=== PATIENT | female | born 1965 | race Caucasian/White ===

== ENCOUNTER → 2018-01-08 10:57 | Outpatient (CLI) | payer MEDICAID, SELFPAY ==
--- NOTE | 2018-01-08 11:01 | XR_ITS ---
EXAM: XR lumbar spine 2-3V HISTORY: ITS.REASON: LOW BACK PAIN ORDERING PHYSICIAN: Mell Arndt PATIENT AGE: 52 years COMPARISON: None FINDINGS: No fracture or dislocation. No lytic or blastic change. There is 7 mm anterolisthesis of L4 on L5 with degenerative disc disease at that level.. Mild facet sclerotic changes are present at L5-S1. There is minimal endplate osteophyte formation superiorly at L1. IMPRESSION: 1. No acute finding. 2. Degenerative disc disease with anterolisthesis of L4 on L5 with mild facet arthritic changes at L5-S1
== END ==
PROVIDERS: PCP Nurse Practitioner Family; Visit Provider Nurse Practitioner Family
DX: M54.5 Low back pain (principal)
CPT/HCPCS: 72100

== ENCOUNTER → 2019-05-15 09:51 | Outpatient (CLI) | payer MEDICAID, SELFPAY ==
--- NOTE | 2019-05-15 09:59 | XR_ITS ---
PROCEDURE: XR LUMBAR SPINE 2-3V CLINICAL INDICATION: LOW BACK PAIN COMPARISON: SPLUMBLM XR lumbar spine 2-3V from 01/08/2018 FINDINGS: There is normal curvature. Again noted is the anterolisthesis of L4 on L5. No definite pars defect is seen although I do not have oblique films available. There are hypertrophic facet changes at L4-5 and L5-S1. All lumbar vertebrae appear intact. There is minor disc space narrowing at L3-4 and L4-5 levels. The SI joints are normal. There are some calcifications left-sided pelvis which could be within uterine fibroids or could be due to phleboliths. IMPRESSION: Stable mild anterolisthesis of L4 on L5 probably secondary to hypertrophic facet changes at this level without a definite pars defect identified along with minor degenerate disc disease L3-4 and L4-5 Dictated by: Dr. Pawan Newsome MD 05/15/2019 10:[address] Pawan Newsome MD in [place] 05/15/2019 10:18
--- NOTE | 2019-05-15 10:00 | MM_ITS ---
PROCEDURE: MM DIG SCREENING MAMM BI W/CAD CLINICAL INDICATION: SCREENING No personal or family history of breast cancer. COMPARISON: The patient had previous mammograms more than 12 years ago and they are not available for review TECHNIQUE: Standard CC and MLO images were obtained. R2 CAD reviewed. FINDINGS: Mild to moderate fibroglandular densities are seen in the subareolar regions of both breasts. There are 2 small benign-appearing nodular densities near the axillary tail of the right breast probably low-lying or intramammary nodes. There is no suspicious lesion in either breast and no suspicious microcalcifications. There may be mild ductal hyperplasia in the subareolar regions bilaterally. There is no suspicious lesion and no suspicious microcalcifications. IMPRESSION: Mild to moderate breast density with no suspicious lesions seen BI-RAD Category: 2 Benign Finding(s) FOLLOW-UP: 1YR 1 Year Follow-up (A letter has been sent to the patient regarding results of the study.) Dictated by: Dr. Pawan Newsome MD 05/17/2019 09:[address] Pawan Newsome MD in [place] 05/17/2019 09:57
== END ==
PROVIDERS: PCP Nurse Practitioner; Visit Provider Nurse Practitioner
DX: Z12.31 Encounter for screening mammogram for malignant neoplasm of breast (principal); M54.5 Low back pain
CPT/HCPCS: 72100; 77067

== ENCOUNTER → 2019-08-14 09:04 | Outpatient (CLI) | payer OTHER, SELFPAY ==
--- NOTE | 2019-08-14 09:21 | MR_ITS ---
PROCEDURE: MR LUMBAR SPINE WO/W CON CLINICAL INDICATION: LOW BACK PAIN Low back pain with right leg pain worse when walking COMPARISON: XR LUMBAR SPINE 2-3V from 05/15/2019 TECHNIQUE: Routine multiplanar multi echo sequences are performed without and with gadolinium enhancement. 3-D MIP and myelographic images are also rendered and reviewed FINDINGS: Spinal cord ends at the T12-L1 level. T11-T12, T12-L1, L1-L2 and L2-L3 have an unremarkable appearance. L3-L4: Minimal bulging disc with mild facet ligamentum hypertrophy with mild bilateral lateral recess and foraminal narrowing. L4-5: 5 mm anterolisthesis of L4 with bulging disc along with facet ligamentum hypertrophy with resultant severe canal stenosis and severe bilateral lateral recess and foraminal narrowing. Canal measures approximately 7 mm. L5-S1: Facet ligamentum hypertrophy left greater than right with moderate to severe left-sided foraminal narrowing and mild right foraminal narrowing. No extruded herniated disc is evident. There are degenerative changes at the SI joints. IMPRESSION: 1. L3-L4: Minimal bulging disc with mild facet ligamentum hypertrophy with mild bilateral lateral recess and foraminal narrowing. 2. L4-5: 5 mm anterolisthesis of L4 with bulging disc along with facet ligamentum hypertrophy with resultant severe canal stenosis and severe bilateral lateral recess and foraminal narrowing. Canal measures approximately 7 mm. 3. The L5-S1: Facet ligamentum hypertrophy left greater than right with moderate to severe left-sided foraminal narrowing and mild right foraminal narrowing. 4. No extruded herniated disc evident Dictated by: Michele Dunne MD 08/14/2019 14:35 Electronically signed by Michele Dunne MD in [place] 08/14/2019 14:35
[2019-08-14 09:35] LABS: Chloride 102 mmol/L (98-107); Potassium 4.5 mmoL/L (3.5-5.1); Sodium 139 mmol/L (136-145)
[2019-08-14 09:38] LABS: Alanine Aminotransferase 13 U/L (12-78); Albumin Level 4.7 g/dl (3.5-5.0); Albumin/Globulin Ratio 1.5 (1.1-1.8); Alkaline Phosphatase 63 U/L (38-126); Anion Gap 13.5 mEq/L (5-15); Aspartate Amino Transferase 24 U/L (14-36); Bilirubin,Total 0.3 mg/dl (0.2-1.3); Blood Urea Nitrogen 12 mg/dl (7-17); Calcium 9.8 mg/dl (8.4-10.2); Carbon Dioxide 28 mmol/L (22.0-30.0); Estimated Glomerular Filt Rate 87 ml/min (>60); GFR (African American) 105 ML/MIN (>60); Globulin 3.2 g/dL (1.3-3.2); Glucose 98 mg/dl (74-100); Total Protein,Serum 7.9 g/dl (6.3-8.2)
== END ==
PROVIDERS: Visit Provider Nurse Practitioner
DX: M54.5 Low back pain (principal); E11.65 Type 2 diabetes mellitus with hyperglycemia; Z79.84 Long term (current) use of oral hypoglycemic drugs
CPT/HCPCS: 36415; 72158; 76376; 80053; A9576

== ENCOUNTER 2019-08-24 14:37 | Outpatient (RCR) | payer OTHER, SELFPAY | END 2019-09-24 13:48 | disposition home or self-care (01) | LOC: PT.CARL 14:37 | PROVIDERS: Visit Provider Nurse Practitioner | DX: M54.5 Low back pain (principal) | CPT/HCPCS: 97163 ==

== ENCOUNTER 2022-06-18 08:50 | Emergency (ER) | payer OTHER, SELFPAY ==
--- NOTE | 2022-06-18 09:25 | EXP.UTC ---
Discharge Plan Disposition Patient Disposition: Home, Self-Care Condition: Good Prescriptions Prescriptions: New azithromycin [Zithromax] 250 mg tablet 250 mg PO UD DOSE PK Qty: 6 0RF Rx Instructions: Take two (2) tablets today, then one (1) tablet days #2 thru #5 benzonatate [benzonatate] 100 mg capsule 100 mg PO TIDP PRN (Reason: Cough) Qty: 30 0RF methylprednisolone 4 mg Tablets,Dose Pack 4 mg PO DIRECTED Qty: 21 0RF No Action metformin 500 MG tablet 500 mg PO BID carvedilol 25 MG tablet 25 mg PO BID paroxetine HCl 10 MG tablet 10 mg PO DAILY clonazepam 0.5 MG tablet 0.5 mg PO BID amlodipine [Norvasc] 10 MG tablet 10 mg PO DAILY lisinopril 10 MG tablet 10 mg PO DAILY Referrals Follow up/Referrals: Irasema Puga APRN [Primary Care Provider] - See instructions Activity Restrictions/Add. Instructions Additional Instructions/Restrictions: Drink plenty of fluids. Take tylenol or ibuprofen for pain or fever. Take the medications as directed. Follow up with your regular doctor. GO TO THE ER FOR ANY WORSENING SYMPTOMS Clinical Impressions Clinical Impression: Bronchitis, Acute viral syndrome Instructions Patient Instructions: DI for Acute Bronchitis, DI for Viral Syndrome Discharge ED Provider: Mendoza Abdi [facility] [place] HPI General Stated complaint: cough,flu exposure,fever Time Seen by Provider: 06/18/22 09:21 History of Present Illness Provider Complaint: She states that for the past 3 days she has had fever, chills, body aches, chest congestion, sinus congestion and a nonproductive cough. Related Data Home Medications Medication Instructions Recorded Confirmed amlodipine 10 mg tablet (Norvasc) 10 mg PO DAILY HTN 11/18/17 11/18/17 carvedilol 25 mg tablet 25 mg PO BID HTN 11/18/17 11/18/17 clonazepam 0.5 mg tablet 0.5 mg PO BID Anxiety 11/18/17 11/18/17 lisinopril 10 mg tablet 10 mg PO DAILY KIDNEYS 11/18/17 11/18/17 metformin 500 mg tablet 500 mg PO BID Diabetes 11/18/17 11/18/17 paroxetine HCl 10 mg tablet 10 mg PO DAILY Depression 11/18/17 11/18/17 Previous Rx's Medication Instructions Recorded azithromycin 250 mg tablet 250 mg PO UD DOSE PK #6 tabs 06/18/22 (Zithromax) benzonatate 100 mg capsule 100 mg PO TIDP PRN Cough #30 caps 06/18/22 methylprednisolone 4 mg tablets in 4 mg PO DIRECTED #21 tabs 06/18/22 a dose pack Allergies Allergy/AdvReac Type Severity Reaction Status Date / Time Beta-Blockers Allergy Verified 06/18/22 09:53 (Beta-Adrenergic Bloc lisinopril Allergy Verified 06/18/22 09:53 [facility] Disclaimer: The information contained in this section may have been updated after the patient was seen, as this information can be updated by other users. Social History Smoking Status: Current every day smoker tobacco type: cigarettes alcohol intake: current current occupational status: employed Travel in the last 8 weeks: None ROS Obtained: Yes All systems reviewed & no additional complaints except as documented Constitutional Constitutional: Reports poor appetite Eyes Eyes: Reports system reviewed and no additional complaints, except as documented ENT Ears, Nose, Mouth, and Throat: Reports as per HPI Cardiovascular Cardiovascular: Reports system reviewed and no additional complaints, except as documented and Denies chest pain Respiratory Respiratory: Denies shortness of breath, Denies chest congestion, Reports cough, Denies stridor and Denies wheezing Gastrointestinal Gastrointestingal: Reports system reviewed and no additional complaints, except as documented; Denies abdominal pain, diarrhea or vomiting Musculoskeletal Musculoskeletal: Reports system reviewed and no additional complaints, except as documented and Denies arthralgias Integumentary/Breasts Skin/Breast: Reports system reviewed and no additional complaints, except as documented and Denies rash Neurologic
[2022-06-18 09:30] VITALS: BP 149/94; PULSE 97; RESP 19; TEMP 36.7; O2SAT 98; BMI 28.1
[2022-06-18 09:33] LABS: Adenovirus,PCR Not Detected (NotDetected); Bordetella Pertussis Not Detected (NotDetected); Chlamydophila Pneumoniae, PCR Not Detected (NotDetected); Coronavirus 19, PCR Not Detected (NotDetected); Coronavirus 229E Not Detected (NotDetected); Coronavirus NL63 Not Detected (NotDetected); Coronavirus OC43 Not Detected (NotDetected); Coronovirus HKU1,PCR Not Detected (NotDetected); Human Metapneumovirus Not Detected (NotDetected); Influenza A, PCR Not Detected (NotDetected); Influenza AH1, 2009 Not Detected (NotDetected); Influenza AH1, PCR Not Detected (NotDetected); Influenza AH3,PCR Not Detected (NotDetected); Influenza B, PCR Not Detected (NotDetected); Mycoplasma Pneumoniae, PCR Not Detected (NotDetected); Parainfluenza 1, PCR Not Detected (NotDetected); Parainfluenza 2, PCR Not Detected (NotDetected); Parainfluenza 3, PCR Not Detected (NotDetected); Parainfluenza 4, PCR Not Detected (NotDetected); Respiratory Syncytial Virus Not Detected (NotDetected); Rhinovirus/Enterovirus Not Detected (NotDetected)
[2022-06-18 09:40] LABS: UTC Influenza A Antigen Negative (Negative)
[2022-06-18 09:41] LABS: UTC Influenza B Antigen Negative (Negative)
[2022-06-18 10:32] VITALS: BP 149/94; PULSE 97; RESP 19; TEMP 36.7; O2SAT 98
== END 2022-06-18 10:32 | disposition home or self-care (01) ==
PROVIDERS: Emergency Provider Nurse Practitioner Family; PCP Nurse Practitioner
DX: J20.9 Acute bronchitis, unspecified (principal)
CPT/HCPCS: 87581; 87632; 87798; 87804; 99212; 99213; C9803; G0463; U0003; U0005

== ENCOUNTER 2023-09-29 08:54 | Observation (INO) | payer OTHER, SELFPAY ==
[2023-09-29] VITALS (13 sets, daily range): BP systolic 90–133; BP diastolic 59–93; PULSE 72–99; RESP 16–20; TEMP 36.4–36.9; O2SAT 88–96; BMI 25.0; BMI 26.3
--- NOTE | 2023-09-29 08:59 | ED_ITS ---
Discharge Plan Disposition Patient Disposition: Admitted Clinical Impressions Clinical Impression: GI bleed Discharge ED Provider: Italo Young General Adult HPI General Chief complaint: Abdominal Pain Stated complaint: abd pain and back pain Time Seen by Provider: 09/29/23 08:59 History of Present Illness HPI narrative: This patient presents for evaluation of epigastric abdominal pain, and reports black, tarry stools. Of note, upon reviewing patient's prescriptions at bedside, has been prescribed diclofenac and additionally has been taking ibuprofen, reports history of ulcers Onset: Gradual Location: Epigastrium Duration: Approximately 72 hours Characteristic: States pain is both sharp and dull Alleviating/Aggrivating Factors: None Radiation: To her back Timing: Constant Severity: Severe Patient reports history of hysterectomy. Was diagnosed with COVID on September 22. Denies nausea, vomiting, hematemesis, chest pain, urinary symptoms. Please note that above description of symptoms, in this electronic medical record under categorization of recalled from ER triage doctor by RN are reflective of an initial nursing assessment, however, is not reflective of my full history and physical exam that was personally taken and clarified. Consequentially, this preceding description of symptoms, which may include the patient's categorized chief complaint in the EMR, do not reflect my personal clinical impression, and the ultimate description of history of present illness and patient stated complaints should be deferred to this section of the note. Unless stated otherwise or congruent with this section of the note, additional signs, symptoms, or incongruence should be interpreted as inaccurate with my clinical impression. Related Data Home Medications Medication Instructions Recorded Confirmed carvedilol 25 mg tablet 25 mg PO BID 11/18/17 09/29/23 clonazepam 0.5 mg tablet 0.5 mg PO BID 11/18/17 09/29/23 amlodipine 5 mg tablet 5 mg PO DAILY 09/29/23 09/29/23 aspirin 81 mg tablet,delayed 81 mg PO DAILY 09/29/23 09/29/23 release atorvastatin 40 mg tablet 40 mg PO DAILY 09/29/23 09/29/23 diclofenac sodium 75 mg 75 mg PO BID 09/29/23 09/29/23 tablet,delayed release hydrochlorothiazide 12.5 mg tablet 12.5 mg PO DAILY 09/29/23 09/29/23 Allergies Allergy/AdvReac Type Severity Reaction Status Date / Time Beta-Blockers Allergy Verified 06/18/22 09:53 (Beta-Adrenergic Bloc lisinopril Allergy Verified 06/18/22 09:53 [facility] Disclaimer: The information contained in this section may have been updated after the patient was seen, as this information can be updated by other users. Social History (Updated 06/18/22 @ 20:24 by Mendoza Abdi APRN) Smoking Status: Current every day smoker tobacco type: cigarettes alcohol intake: current current occupational status: employed Travel in the last 8 weeks: None ROS Obtained: Yes other As per HPI Physical Exam General General appearance: alert and in no apparent distress Head Head exam: atraumatic and normocephalic Eye Eye exam: Present normal appearance Neck Neck exam: Present normal inspection Chest Chest inspection: Present normal inspection and symmetric chest wall rise Respiratory Respiratory exam: Present normal lung sounds bilaterally; Absent respiratory distress Cardiovascular Cardiovascular exam: Present regular rate and normal rhythm Abdominal Exam Abdominal exam: Present soft Abdominal tenderness: Present epigastrium and moderate Neurological Exam Neurological exam: Present alert and oriented X3 Psychiatric Psychiatric exam: Present normal affect and normal mood Skin Skin exam: Present warm and dry Medical Decision Making Medical Records Medical records reviewed: Yes I reviewed the patient's medical records. Marcus Inquiry Pt receiving controlled substance: No Vital Signs: 09/29/23 08:56 09/29/23 09:30 09/29/23 10:00 Temperature 98.1 F Temperature Source Oral Pulse Rate 93 H 86 Pulse Rate [Right] 99 H Respiratory Rate 20 Blood Pressure 121/90 111/84 Blood Pressure [Right Arm] 127/85 Blood Pressure Mean 99 89 Blood Pressure Mean [Right Arm] 99 02 Sat by Pulse Oximetry 93 L 91 L 90 L Oxygen Delivery Method Room Air Oxygen Flow Rate (LPM) 09/29/23 10:30 09/29/23 11:30 09/29/23 12:00 Temperature Temperature Source Pulse Rate 80 78 74 Pulse Rate [Right] Respiratory Rate 16 Blood Pressure 103/72 L 104/67 L 91/66 L Blood Pressure [Right Arm] Blood Pressure Mean 78 Blood Pressure Mean [Right Arm] 02 Sat by Pulse Oximetry 90 L 92 L 93 L Oxygen Delivery Method Room Air Room Air Oxygen Flow Rate (LPM) 09/29/23 12:30 09/29/23 13:00 09/29/23 13:55 Temperature Temperature Source Pulse Rate 75 72 91 H Pulse Rate [Right] Respiratory Rate 16 Blood Pressure 108/68 L 90/59 L 111/87 Blood Pressure [Right Arm] Blood Pressure Mean 94 Blood Pressure Mean [Right Arm] 02 Sat by Pulse Oximetry 91 L 90 L 88 L Oxygen Delivery Method Room Air Room Air Nasal Cannula Oxygen Flow Rate (LPM) 4 09/29/23 14:02 Temperature 98.4 F Temperature Source Oral Pulse Rate 84 Pulse Rate [Right] Respiratory Rate 18 Blood Pressure 133/93 H Blood Pressure [Right Arm] Blood Pressure Mean Blood Pressure Mean [Right Arm] 02 Sat by Pulse Oximetry Oxygen Delivery Method Room Air Oxygen Flow Rate (LPM) Lab Data Lab Results 09/29/23 09:00: Urine Color Yellow, Urine Appearance Cloudy, Urine pH 6.5, Ur Specific [place] 1.015, Urine Protein Trace, Urine Glucose (UA) Negative, Urine Ketones Negative, Urine Blood Negative, Urine Nitrate Negative, Urine Bilirubin 1+ A, Urine Urobilinogen 0.2, Ur Leukocyte Esterase Trace, Urine RBC None, Urine WBC 5-10, Ur Squamous Epith Cells 10-20, Urine Bacteria 1+ 09/29/23 09:25: WBC 15.5 H, RBC 3.25 L, Hgb 10.6 L, Hct 32.1 L, MCV 98.7, MCH 32.7 H, MCHC 33.1, RDW 13.4, Plt Count 257, MPV 9.6, Neut % (Auto) 85.5 H, Lymph % (Auto) 8.1 L, [place] % (Auto) 4.6, Eos % (Auto) 1.4, Baso % (Auto) 0.3, Neut # (Auto) 13.3 H, Lymph # (Auto) 1.3, [place] # (Auto) 0.7, Eos # (Auto) 0.2, Baso # (Auto) 0.1, Total Counted 100, Neutrophils % (Manual) 70, Lymphocytes % (Manual) 27, Monocytes % (Manual) 3, Platelet Estimate Normal, RBC Morphology Normal, PT 10.3, INR 0.95, Sodium 130 L, Potassium 2.7 L*, Chloride 87 L, Carbon Dioxide 36 H, Anion Gap 9.7, BUN 39 H, Creatinine 0.90, Estimated Creat Clear 68, Estimated GFR 64, Est GFR ( Amer) 78, Glucose 185 H, Calcium 9.9, Magnesium 1.5 L, Total Bilirubin 0.6, AST 28, ALT 26, Alkaline Phosphatase 64, Total Protein 6.6, Albumin 4.0, Globulin 2.6, Albumin/Globulin Ratio 1.5, Lipase 156 09/29/23 09:53: Blood Type O Negative, Antibody Screen Negative 09/29/23 11:33: SARS-CoV-2 (PCR) Not detected, Influenza A Untype (PCR) Not detected, Influenza Type B (PCR) Not detected 09/29/23 09:25 09/29/23 09:25 Orders (Tests/Meds): ED MEDICATIONS Generic Name Dose Route Start Last Admin Trade Name Freq PRN Reason Stop Dose Admin Acetaminophen 650 mg 09/29/23 13:33 09/29/23 15:15 Acetaminophen 325mg Tab PO 10/29/23 13:32 650 mg Q4HP PRN Administration Fever or Mild Pain (1-3) Lactated Ringer's 1,000 mls @ 75 mls/hr 09/29/23 13:45 09/29/23 15:16 Lactated Ringer's 1000 Ml Bag IV 10/29/23 13:44 75 mls/hr .[id number] ALYSON Administration Ondansetron HCl 4 mg 09/29/23 13:33 09/29/23 15:15 Ondansetron 4mg/2ml Vial IV 10/29/23 13:32 4 mg Q8HP PRN Administration Nausea Pantoprazole Sodium 40 mg 09/29/23 13:45 09/29/23 15:15 Pantoprazole 40mg Vial IV 10/29/23 13:44 40 mg BID ALYSON Administration Sodium Chloride 10 ml 09/29/23 09:46 09/29/23 15:15 Sodium Chloride 0.9% 10ml Vial IV 10/29/23 09:45 10 ml NEEDED PRN Administration dilute protonix Discontinued Medications Generic Name Dose Route Start Last Admin Trade Name Freq PRN Reason Stop Dose Admin Belladonna Alkaloids 60 ml 09/29/23 09:31 09/29/23 09:48 Belladonna Alkaloids 60 Ml Ml PO 09/29/23 09:32 60 ml ONCE ONE Administration Lactated Ringer's 1,000 mls @ 999 mls/hr 09/29/23 09:31 09/29/23 09:48 Lactated Ringer's 1000 Ml Bag IV 09/29/23 10:31 999 mls/hr .Q1H1M ONE Administration Pantoprazole Sodium 80 mg/ 100 mls @ 100 mls/hr 09/29/23 09:31 09/29/23 09:58 Sodium Chloride IV 09/29/23 10:30 Not Given ONCE ONE Magnesium Sulfate 2 gm in 50 mls @ 50 mls/hr 09/29/23 14:45 09/29/23 15:16 Magnesium Sulfate 2gm/50ml Premix IV 09/29/23 15:44 50 mls/hr ONCE ONE Administration Iopamidol 100 ml 09/29/23 11:37 09/29/23 11:41 Iopamidol-370 (76%);100ml Bottle IV 09/29/23 11:38 100 ml ONCE ONE Administration Morphine Sulfate 4 mg 09/29/23 09:31 09/29/23 09:48 Morphine 4mg/Ml Syringe IV 09/29/23 09:32 4 mg ONCE ONE Administration Pantoprazole Sodium 40 mg 09/29/23 09:46 09/29/23 09:50 Pantoprazole 40mg Vial IV 09/29/23 09:47 40 mg ONCE ONE Administration Sodium Chloride 50 ml 09/29/23 11:37 09/29/23 11:40 0.9 % Sodium Chloride 50 Ml Vial IV 09/29/23 11:38 50 ml ONCE ONE Administration Sodium Chloride 10 ml 09/29/23 11:37 09/29/23 11:41 Sodium Chloride 0.9% 10ml Syr (Rad Only) IV 09/29/23 11:38 10 ml ONCE ONE Administration ORDERS Category Date Time Status Type and Screen Stat BBK 09/29/23 09:[address] angio abdomen pelvis Stat Cat Scan 09/29/23 09:31 Taken Basic Metabolic Panel AMLAB Lab 09/30/23 06:00 Ordered Basic Metabolic Panel AMLAB Lab 10/01/23 06:00 Ordered Basic Metabolic Panel AMLAB Lab 10/02/23 06:00 Ordered CBC w/Auto Diff [Complete Blood Count Auto Diff] Stat Lab 09/29/23 09:25 Completed CMP [Comprehensive Metabolic Panel] Stat Lab 09/29/23 09:25 Completed Complete Blood Count Auto Diff AMLAB Lab 09/30/23 06:00 Ordered Complete Blood Count Auto Diff AMLAB Lab 10/01/23 06:00 Ordered Complete Blood Count Auto Diff AMLAB Lab 10/02/23 06:00 Ordered Hemoglobin and Hematocrit BID Lab 09/29/23 21:00 Ordered Lipase Stat Lab 09/29/23 09:25 Completed Magnesium Stat Lab 09/29/23 09:25 Completed PT INR [Prothrombin Time INR] Stat Lab 09/29/23 09:25 Completed Rapid PCR Covid and Flu A/B Stat Lab 09/29/23 11:33 Completed Urinalysis-Acute [Urinalysis and Microscopic] Stat Lab 09/29/23 09:00 Completed Medical Decision Narrative: Patient with history and exam per above presenting for evaluation of epigastric and left upper quadrant abdominal pain, associated with recent NSAID use and history of PUD Diagnoses considered include peptic ulcer disease, gastritis, gastric cancer, perforation, anemia ED workup and treatment included: ED MEDICATIONS Generic Name Dose Route Start Last Admin Trade Name Freq PRN Reason Stop Dose Admin Acetaminophen 650 mg 09/29/23 13:33 09/29/23 15:15 Acetaminophen 325mg Tab PO 10/29/23 13:32 650 mg Q4HP PRN Administration Fever or Mild Pain (1-3) Lactated Ringer's 1,000 mls @ 75 mls/hr 09/29/23 13:45 09/29/23 15:16 Lactated Ringer's 1000 Ml Bag IV 10/29/23 13:44 75 mls/hr .[id number] ALYSON Administration Ondansetron HCl 4 mg 09/29/23 13:33 09/29/23 15:15 Ondansetron 4mg/2ml Vial IV 10/29/23 13:32 4 mg Q8HP PRN Administration Nausea Pantoprazole Sodium 40 mg 09/29/23 13:45 09/29/23 15:15 Pantoprazole 40mg Vial IV 10/29/23 13:44 40 mg BID ALYSON Administration Sodium Chloride 10 ml 09/29/23 09:46 09/29/23 15:15 Sodium Chloride 0.9% 10ml Vial IV 10/29/23 09:45 10 ml NEEDED PRN Administration dilute protonix Discontinued Medications Generic Name Dose Route Start Last Admin Trade Name Freq PRN Reason Stop Dose Admin Belladonna Alkaloids 60 ml 09/29/23 09:31 09/29/23 09:48 Belladonna Alkaloids 60 Ml Ml PO 09/29/23 09:32 60 ml ONCE ONE Administration Lactated Ringer's 1,000 mls @ 999 mls/hr 09/29/23 09:31 09/29/23 09:48 Lactated Ringer's 1000 Ml Bag IV 09/29/23 10:31 999 mls/hr .Q1H1M ONE Administration Pantoprazole Sodium 80 mg/ 100 mls @ 100 mls/hr 09/29/23 09:31 09/29/23 09:58 Sodium Chloride IV 09/29/23 10:30 Not Given ONCE ONE Magnesium Sulfate 2 gm in 50 mls @ 50 mls/hr 09/29/23 14:45 09/29/23 15:16 Magnesium Sulfate 2gm/50ml Premix IV 09/29/23 15:44 50 mls/hr ONCE ONE Administration Iopamidol 100 ml 09/29/23 11:37 09/29/23 11:41 Iopamidol-370 (76%);100ml Bottle IV 09/29/23 11:38 100 ml ONCE ONE Administration Morphine Sulfate 4 mg 09/29/23 09:31 09/29/23 09:48 Morphine 4mg/Ml Syringe IV 09/29/23 09:32 4 mg ONCE ONE Administration Pantoprazole Sodium 40 mg 09/29/23 09:46 09/29/23 09:50 Pantoprazole 40mg Vial IV 09/29/23 09:47 40 mg ONCE ONE Administration Sodium Chloride 50 ml 09/29/23 11:37 09/29/23 11:40 0.9 % Sodium Chloride 50 Ml Vial IV 09/29/23 11:38 50 ml ONCE ONE Administration Sodium Chloride 10 ml 09/29/23 11:37 09/29/23 11:41 Sodium Chloride 0.9% 10ml Syr (Rad Only) IV 09/29/23 11:38 10 ml ONCE ONE Administration ORDERS Category Date Time Status Type and Screen Stat BBK 09/29/23 09:[address] angio abdomen pelvis Stat Cat Scan 09/29/23 09:31 Taken Basic Metabolic Panel AMLAB Lab 09/30/23 06:00 Ordered Basic Metabolic Panel AMLAB Lab 10/01/23 06:00 Ordered Basic Metabolic Panel AMLAB Lab 10/02/23 06:00 Ordered CBC w/Auto Diff [Complete Blood Count Auto Diff] Stat Lab 09/29/23 09:25 Completed CMP [Comprehensive Metabolic Panel] Stat Lab 09/29/23 09:25 Completed Complete Blood Count Auto Diff AMLAB Lab 09/30/23 06:00 Ordered Complete Blood Count Auto Diff AMLAB Lab 10/01/23 06:00 Ordered Complete Blood Count Auto Diff AMLAB Lab 10/02/23 06:00 Ordered Hemoglobin and Hematocrit BID Lab 09/29/23 21:00 Ordered Lipase Stat Lab 09/29/23 09:25 Completed Magnesium Stat Lab 09/29/23 09:25 Completed PT INR [Prothrombin Time INR] Stat Lab 09/29/23 09:25 Completed Rapid PCR Covid and Flu A/B Stat Lab 09/29/23 11:33 Completed Urinalysis-Acute [Urinalysis and Microscopic] Stat Lab 09/29/23 09:00 Completed Labs were independently interpreted by me, significant for leukocytosis, hemoglobin 10.6, baseline unknown, hypokalemia Imaging was independently visualized and interpreted by me, significant for no acute surgical pathology, no active extravasation. Please refer to radiology report for full details. My clinical impression at this time is most consistent with upper GI bleed in the absence of risk factors for esophageal varices Critical Care Critical Care Time Critical Care Time: No
--- NOTE | 2023-09-29 09:08 | ECG_ITS ---
APPROVED REPORT Exam: Resting ECG HR:93 bpm ECG Measurements Heart Rate 93 AXES TN 129 P 66 QRSd 98 QRS -15 QT 380 T 46 QTc 430 Conclusion SINUS RHYTHM POSSIBLE LEFT ATRIAL ENLARGEMENT [-0.1mV P-WAVE IN V1/V2] INCOMPLETE RIGHT BUNDLE BRANCH BLOCK [90+ ms QRS DURATION, TERMINAL R IN V1/V2, 40+ ms S IN I/aVL/V4/V5/V6] NONSPECIFIC T-WAVE ABNORMALITY BORDERLINE ECG UNCONFIRMED REPORT Electronically signed by : WILLI CAMPBELL, 09/30/2023 03:00:37
[2023-09-29 09:22] LABS: Microscopic, Urine URINE MICROSCOPIC (MICROSCOPIC)
[2023-09-29 09:24] LABS: Appearance,Urine CLOUDY (Clear); Blood, Urine Negative (Negative); Color,Urine YELLOW (Yellow); Glucose,Urine (UA) Negative (Negative); Ketones,Urine Negative (Negative); Leukocyte Esterase,Urine TRACE (Negative); Nitrate,Urine Negative (Negative); PH,Urine 6.5 (5.0-8.5); Protein,Urine TRACE (Negative); Specific Gravity, Urine 1.015 (1.005-1.030); Urobilinogen,Urine 0.2 EU/dl (0.2)
--- NOTE | 2023-09-29 09:26 | PC.NURSE ---
Dr Yuong at bedside
[2023-09-29 09:28] LABS: Bilirubin,Urine 1+ (Negative)
[2023-09-29 09:36] LABS: Bacteria,Urine 1+ /lpf
[2023-09-29 09:43] LABS: Basophils # 0.1 K/mm3 (0-0.2); Basophils % 0.3 % (0.1-2.0); Eosinophils # 0.2 K/mm3 (0.0-0.4); Eosinophils % 1.4 % (0.1-12.0); Hematocrit 32.1 % (37.0-47.0); Hemoglobin 10.6 g/dL (12.2-16.2); Lymphocytes # 1.3 K/mm3 (0.7-4.5); Lymphocytes % 8.1 % (10-50); Mean Corpuscular HGB Conc 33.1 g/dL (31.8-35.4); Mean Corpuscular Hemoglobin 32.7 pg (27.0-31.2); Mean Corpuscular Volume 98.7 fl (81-99); Mean Platelet Volume 9.6 fl (7.4-10.4); Monocytes # 0.7 K/mm3 (0.1-1.0); Monocytes % 4.6 % (1.7-9.3); Neutrophils # 13.3 K/mm3 (1.8-7.8); Neutrophils % 85.5 % (37.0-80.0); Platelet Count 257 K/mm3 (142-424); Red Blood Count 3.25 M/mm3 (4.20-5.40); Red Cell Distribution Width 13.4 % (11.5-17.5); White Blood Count 15.5 K/mm3 (4.8-10.8)
[2023-09-29 09:44] LABS: Chloride 87 mmol/L (98-107); Sodium 130 mmol/L (136-145)
[2023-09-29 09:47] LABS: Alanine Aminotransferase 26 U/L (12-78); Albumin/Globulin Ratio 1.5 (1.1-1.8); Alkaline Phosphatase 64 U/L (38-126); Anion Gap 9.7 mEq/L (5-15); Aspartate Amino Transferase 28 U/L (14-36); Bilirubin,Total 0.6 mg/dl (0.2-1.3); Blood Urea Nitrogen 39 mg/dl (7-17); Calcium 9.9 mg/dl (8.4-10.2); Carbon Dioxide 36 mmol/L (22.0-30.0); Creatinine Clearance Estimated 68 mL/min (50-200); Estimated Glomerular Filt Rate 64 ml/min (>60); GFR (African American) 78 ML/MIN (>60); Globulin 2.6 g/dL (1.3-3.2); Glucose 185 mg/dl (74-100); Lipase 156 U/L (23-300); Total Protein,Serum 6.6 g/dl (6.3-8.2)
[2023-09-29 09:48] LABS: INR 0.95 (0.9-1.1); MANUAL DIFFERENTIAL MANUAL DIFFERENTIAL (MANUAL DIFF); Prothrombin Time 10.3 seconds (10.1-12.5)
[2023-09-29] MEDS: BELLADONNA ALKALOIDS 60 ML ML PO (09:48)
[2023-09-29] MEDS: MORPHINE 4MG/ML SYRINGE 4 MG IV (09:48)
[2023-09-29] MEDS: LACTATED RINGERS 1000ML 1,000 ML 999 ML IV (09:48)
[2023-09-29 09:49] LABS: Potassium 2.7 mmoL/L (3.5-5.1)
[2023-09-29] MEDS: PANTOPRAZOLE 40MG VIAL 40 MG IV ×3 (09:50→21:23)
[2023-09-29 09:58] LABS: Magnesium 1.5 mg/dl (1.6-2.3)
--- NOTE | 2023-09-29 10:02 | PC.NURSE ---
PT gone to RAD via wheelchair
[2023-09-29 10:20] LABS: Lymphocytes % 27 % (10-50); Monocytes % 3 % (2-9); Neutrophils % 70 % (42-76); Total Cells Counted 100
[2023-09-29 10:25] LABS: Platelet Estimate Normal; RBC Morphology Normal
--- NOTE | 2023-09-29 11:03 | PC.NURSE ---
ROUNDED ON PT. NO NEEDS VOICED AT THIS TIME. CALL LIGHT WITHIN REACH
[2023-09-29 11:36] LABS: Coronavirus 19, PCR Not Detected (NotDetected); Influenza A, PCR Not Detected (NotDetected); Influenza B, PCR Not Detected (NotDetected)
[2023-09-29] MEDS: 0.9 % SODIUM CHLORIDE 50 ML VIAL IV (11:40)
[2023-09-29] MEDS: IOPAMIDOL-370 (76%);100ML BOTTLE 100 ML IV (11:41)
[2023-09-29] MEDS: SODIUM CHLORIDE 0.9% 10ML SYR (RAD ONLY) 10 ML IV (11:41)
--- NOTE | 2023-09-29 13:19 | PC.NURSE ---
DR LONGORIA AT BS TO UPDATE PT ON POC
--- NOTE | 2023-09-29 13:29 | PC.NURSE ---
DR LONGORIA SPOKE WITH DR PRESCOTT
--- NOTE | 2023-09-29 13:32 | PC.NURSE ---
DR LONGORIA SPEAKING WITH DR FONSECA FOR ADMISSION
--- NOTE | 2023-09-29 13:38 | PC.NURSE ---
BAND EDGER NOTIFIED OF ADMISSION
--- NOTE | 2023-09-29 14:02 | PC.NURSE ---
report called to [facility]
--- NOTE | 2023-09-29 14:11 | HMH.PHAINT1 ---
Pharmacy Intervention Comments: MEDICATION RECONCILIATION COMPLETE USING EXTERNAL PHARMACY FILL HISTORY AND JERAMY REPORT.
--- NOTE | 2023-09-29 14:32 | EXP.HP ---
History of Present Illness *Admission Date: 09/29/23 *Reason for visit:: melena *History of present illness: Patient is a 58-year-old female who presents to the hospital due to black-colored stools, epigastric abdominal pain for 3-4 days. She was recently prescribed NSAIDs for her back pain, she has history of peptic ulcer disease, she also has been utilizing ibuprofen as well as smoking. Patient otherwise denied nausea vomiting diarrhea constipation dysuria. Patient otherwise denied chest pain shortness of breath dizziness lightheadedness. [facility] Disclaimer: The information contained in this section may have been updated after the patient was seen, as this information can be updated by other users. Medical History (Updated 09/29/23 @ 17:25 by Giselle Rodgers MD) HLD (hyperlipidemia) Anxiety HTN (hypertension) Social History Smoking Status: Current every day smoker tobacco type: cigarettes alcohol intake: current current occupational status: employed Travel in the last 8 weeks: None Review of Systems Review of Systems Review of systems:: pertinent systems reviewed and negative unless documented below Meds Home Medications and Allergies Home Medications Medication Instructions Recorded Confirmed Type carvedilol 25 mg tablet 25 mg PO BID 11/18/17 09/29/23 History clonazepam 0.5 mg tablet 0.5 mg PO BID 11/18/17 09/29/23 History amlodipine 5 mg tablet 5 mg PO DAILY 09/29/23 09/29/23 History aspirin 81 mg tablet,delayed 81 mg PO DAILY 09/29/23 09/29/23 History release atorvastatin 40 mg tablet 40 mg PO DAILY 09/29/23 09/29/23 History diclofenac sodium 75 mg 75 mg PO BID 09/29/23 09/29/23 History tablet,delayed release hydrochlorothiazide 12.5 mg tablet 12.5 mg PO DAILY 09/29/23 09/29/23 History New Prescriptions to Start Prescriptions: Allergies Allergy/AdvReac Type Severity Reaction Status Date / Time Beta-Blockers Allergy Verified 06/18/22 09:53 (Beta-Adrenergic Bloc lisinopril Allergy Verified 06/18/22 09:53 Exam Data for Last 24 hours Vital signs and Labs for Last 24 Hours: Temp Pulse Resp BP Pulse Ox O2 Del Method O2 Flow Rate 97.6 F 91 H 18 123/89 94 L Nasal Cannula 2 09/29/23 14:19 09/29/23 14:19 09/29/23 14:19 09/29/23 14:19 09/29/23 14:09/29/23 14:09/29/23 14:19 Laboratory Results - last 24 hr 09/29/23 09:00: Urine Color Yellow, Urine Appearance Cloudy, Urine pH 6.5, Ur Specific [place] 1.015, Urine Protein Trace, Urine Glucose (UA) Negative, Urine Ketones Negative, Urine Blood Negative, Urine Nitrate Negative, Urine Bilirubin 1+ A, Urine Urobilinogen 0.2, Ur Leukocyte Esterase Trace, Urine RBC None, Urine WBC 5-10, Ur Squamous Epith Cells 10-20, Urine Bacteria 1+ 09/29/23 09:25: WBC 15.5 H, RBC 3.25 L, Hgb 10.6 L, Hct 32.1 L, MCV 98.7, MCH 32.7 H, MCHC 33.1, RDW 13.4, Plt Count 257, MPV 9.6, Neut % (Auto) 85.5 H, Lymph % (Auto) 8.1 L, [place] % (Auto) 4.6, Eos % (Auto) 1.4, Baso % (Auto) 0.3, Neut # (Auto) 13.3 H, Lymph # (Auto) 1.3, [place] # (Auto) 0.7, Eos # (Auto) 0.2, Baso # (Auto) 0.1, Total Counted 100, Neutrophils % (Manual) 70, Lymphocytes % (Manual) 27, Monocytes % (Manual) 3, Platelet Estimate Normal, RBC Morphology Normal, PT 10.3, INR 0.95, Sodium 130 L, Potassium 2.7 L*, Chloride 87 L, Carbon Dioxide 36 H, Anion Gap 9.7, BUN 39 H, Creatinine 0.90, Estimated Creat Clear 68, Estimated GFR 64, Est GFR ( Amer) 78, Glucose 185 H, Calcium 9.9, Magnesium 1.5 L, Total Bilirubin 0.6, AST 28, ALT 26, Alkaline Phosphatase 64, Total Protein 6.6, Albumin 4.0, Globulin 2.6, Albumin/Globulin Ratio 1.5, Lipase 156 09/29/23 09:53: Blood Type O Negative, Antibody Screen Negative 09/29/23 11:33: SARS-CoV-2 (PCR) Not detected, Influenza A Untype (PCR) Not detected, Influenza Type B (PCR) Not detected I & O for Last 24 hours: Intake & Output 09/26/23 09/27/23 09/28/23 09/29/23 23:59 23:59 23:59 23:59 Weight 65.374 kg Constitutional Constitutional: no acute distress *Routine HEENT Exam Head: Present normocephalic Eye: Present EOMI and PERRL ENT: Present mucous membranes moist *Routine Neck Exam Neck: Present supple; Absent lymphadenopathy *Routine Respiratory Exam Respiratory: Present CTA bilaterally *Routine Cardiovascular Exam Cardiovascular: Present RRR *Routine Abdominal Exam Abdominal: Present soft and normoactive bowel sounds; Absent tenderness *Routine Rectal Exam Rectal:: deferred *Routine Genitalia Exam Genitalia:: deferred *Routine Extremities Exam Extremities: Absent cyanosis, clubbing or edema *Routine Skin Exam Skin: Present warm; Absent rash *Routine Neurological Exam Neurological: Present alert and oriented X3 Assessment and Plan *Assessment and plan (1) GI bleed: Status: Acute Category: Medical Code(s): K92.2 - Gastrointestinal hemorrhage, unspecified (2) Acute blood loss anemia: Status: Acute Category: Medical Code(s): D62 - Acute posthemorrhagic anemia (3) Hypokalemia: Status: Acute Category: Medical Code(s): E87.6 - Hypokalemia Plan Patient is a 58-year-old female who presents to the hospital due to black-colored stools, epigastric abdominal pain. She was recently prescribed NSAIDs for her back pain, she has history of peptic ulcer disease, she also has been utilizing ibuprofen as well as smoking. Patient otherwise denied nausea vomiting diarrhea constipation dysuria. Patient otherwise denied chest pain shortness of breath dizziness lightheadedness. Assessment and plan Melena, GI bleed likely secondary to peptic ulcer secondary to NSAIDs use Anemia of acute blood loss Start IV Protonix 40 twice daily General surgery consulted for possible endoscopy N.p.o. after midnight Add on sucralfate Monitor H&H Continue IV fluids Unknown baseline hemoglobin, closely monitor for bleeding CT abdomen pelvis performed in the emergency department-pending results Leukocytosis likely reactive -Monitor Hypokalemia Monitor and replace Recheck potassium Hypomagnesemia Monitor and replace DVT prophylaxis-SCDs for now, avoid antiplatelets anticoagulants, NSAIDs
[2023-09-29] MEDS: SODIUM CHLORIDE 0.9% 10ML VIAL 10 ML IV ×2 (15:15→21:23)
[2023-09-29] MEDS: ACETAMINOPHEN 325MG TAB 650 MG PO ×2 (15:15→19:26)
[2023-09-29] MEDS: ONDANSETRON 4MG/2ML VIAL 4 MG IV (15:15)
[2023-09-29] MEDS: MAGNESIUM SULFATE IN WATER 2 GM/50 ML PIGGYBACK IV (15:16)
[2023-09-29] MEDS: LACTATED RINGERS 1000ML 1,000 ML 75 ML IV (15:16)
--- NOTE | 2023-09-29 15:57 | EXP.SURG.CON ---
History of Present Illness *Admission Date: 09/29/23 *History of present illness: Patient is a 58-year-old female from [facility] General surgery consultation obtained for GI bleed . She presented to the emergency department this morning on 09/29/2023 with epigastric pain and some black tarry stools. Reportedly she has a history of ulcers which was diagnosed clinically. She is on diclofenac for sciatica . After she was diagnosed apparently with COVID on 09/24/2023 she was taking ibuprofen every 4-6 hours for low-grade fever. She presented mainly with what she described as symptoms of constant sharp and dull epigastric pain radiating into her back. This has been ongoing for several days. Patient does smoke approximately 2 packs of cigarettes daily. She drinks alcohol rarely. Evaluation in the emergency department revealed a hemoglobin of 10.6. Comprehensive metabolic panel notable for sodium of 130, potassium 2.7, BUN 39 with a creatinine of 0.9. She underwent CT angiogram of the abdomen pelvis this morning. Official report is still pending however this appears show findings of significant antral gastritis and duodenitis without extravasation. [facility] Disclaimer: The information contained in this section may have been updated after the patient was seen, as this information can be updated by other users. Social History (Updated 06/18/22 @ 20:24 by Mendoza Abdi APRN) Smoking Status: Current every day smoker tobacco type: cigarettes alcohol intake: current current occupational status: employed Travel in the last 8 weeks: None Review of Systems Review of Systems Review of systems:: pertinent systems reviewed and negative unless documented below Meds Home Medications and Allergies Home Medications Medication Instructions Recorded Confirmed Type carvedilol 25 mg tablet 25 mg PO BID 11/18/17 09/29/23 History clonazepam 0.5 mg tablet 0.5 mg PO BID 11/18/17 09/29/23 History amlodipine 5 mg tablet 5 mg PO DAILY 09/29/23 09/29/23 History aspirin 81 mg tablet,delayed 81 mg PO DAILY 09/29/23 09/29/23 History release atorvastatin 40 mg tablet 40 mg PO DAILY 09/29/23 09/29/23 History diclofenac sodium 75 mg 75 mg PO BID 09/29/23 09/29/23 History tablet,delayed release hydrochlorothiazide 12.5 mg tablet 12.5 mg PO DAILY 09/29/23 09/29/23 History New Prescriptions to Start Prescriptions: Allergies Allergy/AdvReac Type Severity Reaction Status Date / Time Beta-Blockers Allergy Verified 06/18/22 09:53 (Beta-Adrenergic Bloc lisinopril Allergy Verified 06/18/22 09:53 Exam (Inpt) Vital signs and Labs for Last 24 Hours: Temp Pulse Resp BP Pulse Ox O2 Del Method O2 Flow Rate 97.6 F 91 H 18 123/89 94 L Nasal Cannula 2 09/29/23 14:09/29/23 14:09/29/23 14:19 09/29/23 14:19 09/29/23 14:19 09/29/23 14:09/29/23 14:19 Laboratory Results - last 24 hr 09/29/23 09:00: Urine Color Yellow, Urine Appearance Cloudy, Urine pH 6.5, Ur Specific [place] 1.015, Urine Protein Trace, Urine Glucose (UA) Negative, Urine Ketones Negative, Urine Blood Negative, Urine Nitrate Negative, Urine Bilirubin 1+ A, Urine Urobilinogen 0.2, Ur Leukocyte Esterase Trace, Urine RBC None, Urine WBC 5-10, Ur Squamous Epith Cells 10-20, Urine Bacteria 1+ 09/29/23 09:25: WBC 15.5 H, RBC 3.25 L, Hgb 10.6 L, Hct 32.1 L, MCV 98.7, MCH 32.7 H, MCHC 33.1, RDW 13.4, Plt Count 257, MPV 9.6, Neut % (Auto) 85.5 H, Lymph % (Auto) 8.1 L, [place] % (Auto) 4.6, Eos % (Auto) 1.4, Baso % (Auto) 0.3, Neut # (Auto) 13.3 H, Lymph # (Auto) 1.3, [place] # (Auto) 0.7, Eos # (Auto) 0.2, Baso # (Auto) 0.1, Total Counted 100, Neutrophils % (Manual) 70, Lymphocytes % (Manual) 27, Monocytes % (Manual) 3, Platelet Estimate Normal, RBC Morphology Normal, PT 10.3, INR 0.95, Sodium 130 L, Potassium 2.7 L*, Chloride 87 L, Carbon Dioxide 36 H, Anion Gap 9.7, BUN 39 H, Creatinine 0.90, Estimated Creat Clear 68, Estimated GFR 64, Est GFR ( Amer) 78, Glucose 185 H, Calcium 9.9, Magnesium 1.5 L, Total Bilirubin 0.6, AST 28, ALT 26, Alkaline Phosphatase 64, Total Protein 6.6, Albumin 4.0, Globulin 2.6, Albumin/Globulin Ratio 1.5, Lipase 156 09/29/23 09:53: Blood Type O Negative, Antibody Screen Negative 09/29/23 11:33: SARS-CoV-2 (PCR) Not detected, Influenza A Untype (PCR) Not detected, Influenza Type B (PCR) Not detected I & O for Labs for Last 24 Hours: Intake & Output 09/27/23 09/28/23 09/29/23 09/30/23 11:59 11:59 11:59 11:59 Output Total 0 / 0 Balance 0 / 0 Weight 141 lb 144 lb 2 oz Constitutional: no acute distress Head: Present normocephalic Neck: Present normal inspection Respiratory: Present wheezes Cardiac: Present Reg Rate and Rhythm GI: Present soft Comments:: Tenderness in the mid upper abdomen Rectal (female): Present deferred (female): Present deferred Results Labs 09/29/23 09:25 09/29/23 09:25 Labs: Laboratory Results - last 24 hr 09/29/23 09:00: Urine Color Yellow, Urine Appearance Cloudy, Urine pH 6.5, Ur Specific [place] 1.015, Urine Protein Trace, Urine Glucose (UA) Negative, Urine Ketones Negative, Urine Blood Negative, Urine Nitrate Negative, Urine Bilirubin 1+ A, Urine Urobilinogen 0.2, Ur Leukocyte Esterase Trace, Urine RBC None, Urine WBC 5-10, Ur Squamous Epith Cells 10-20, Urine Bacteria 1+ 09/29/23 09:25: WBC 15.5 H, RBC 3.25 L, Hgb 10.6 L, Hct 32.1 L, MCV 98.7, MCH 32.7 H, MCHC 33.1, RDW 13.4, Plt Count 257, MPV 9.6, Neut % (Auto) 85.5 H, Lymph % (Auto) 8.1 L, [place] % (Auto) 4.6, Eos % (Auto) 1.4, Baso % (Auto) 0.3, Neut # (Auto) 13.3 H, Lymph # (Auto) 1.3, [place] # (Auto) 0.7, Eos # (Auto) 0.2, Baso # (Auto) 0.1, Total Counted 100, Neutrophils % (Manual) 70, Lymphocytes % (Manual) 27, Monocytes % (Manual) 3, Platelet Estimate Normal, RBC Morphology Normal, PT 10.3, INR 0.95, Sodium 130 L, Potassium 2.7 L*, Chloride 87 L, Carbon Dioxide 36 H, Anion Gap 9.7, BUN 39 H, Creatinine 0.90, Estimated Creat Clear 68, Estimated GFR 64, Est GFR ( Amer) 78, Glucose 185 H, Calcium 9.9, Magnesium 1.5 L, Total Bilirubin 0.6, AST 28, ALT 26, Alkaline Phosphatase 64, Total Protein 6.6, Albumin 4.0, Globulin 2.6, Albumin/Globulin Ratio 1.5, Lipase 156 09/29/23 09:53: Blood Type O Negative, Antibody Screen Negative 09/29/23 11:33: SARS-CoV-2 (PCR) Not detected, Influenza A Untype (PCR) Not detected, Influenza Type B (PCR) Not detected Assessment and Plan *Assessment and plan (1) GI bleed: Status: Acute Category: Medical Code(s): K92.2 - Gastrointestinal hemorrhage, unspecified Plan Likely significant antral gastritis and duodenitis with possible ulcer disease. No indications at this time for immediate surgical intervention. Recommend witholding NSAIDs. I recommend high-dose therapeutic dose proton pump inhibitors and sucralfate. Likely upper endoscopy in the near future for diagnostic and potentially therapeutic purposes
[2023-09-29] MEDS: MORPHINE 2MG/ML SYRINGE 1 MG IV ×2 (17:27→21:24)
--- NOTE | 2023-09-29 17:50 | PC.NURSE ---
Patient a&ox4 and vss. Patient new admit this shift with GI bleed and and upper abdominal pain. Patient's pain resolved with morphine and surgery consulted.
--- NOTE | 2023-09-29 21:10 | PC.NURSE ---
Contacted EQ, [employer] at this time (EQ, busy in ER with emergency, will call back), Pt states she is having 10/10 pain left side of abdomen.
[2023-09-29] MEDS: MELATONIN 5MG TABLET 5 MG PO (21:23)
[2023-09-29] MEDS: SUCRALFATE 1GM/10ML SUSP UDC 1 GM PO (21:23)
[2023-09-29] MEDS: clonazePAM 0.5MG TABLET 0.5 MG PO (21:23)
[2023-09-29 21:52] LABS: Hematocrit 24.4 % (37.0-47.0)
[2023-09-29 22:12] LABS: Hemoglobin 8.3 g/dL (12.2-16.2)
[2023-09-29] MEDS: POTASSIUM CHLORIDE 20MEQ TAB 40 MEQ PO (22:52)
[2023-09-30] VITALS (18 sets, daily range): BP systolic 89–110; BP diastolic 49–70; PULSE 70–101; RESP 14–20; TEMP 36.6–37; O2SAT 2–98; BMI 27.4
[2023-09-30] MEDS: MORPHINE 2MG/ML SYRINGE 1 MG IV ×4 (01:31→17:56)
[2023-09-30] MEDS: SUCRALFATE 1GM/10ML SUSP UDC 1 GM PO ×4 (05:33→20:31)
--- NOTE | 2023-09-30 05:53 | PC.NURSE ---
pt is alert and oriented x4 and currently on 2L of O2 and tolerating it well. Pt has complained of severe pain this shift and has been treated per MAR. Pt is NPO and has been since MD. Pt offers no other complaints and denies needs at this time
[2023-09-30 07:01] LABS: Basophils % 0.2 % (0.1-2.0); Eosinophils % 0.3 % (0.1-12.0); Hematocrit 25.5 % (37.0-47.0); Hemoglobin 8.4 g/dL (12.2-16.2); Lymphocytes # 2.3 K/mm3 (0.7-4.5); Lymphocytes % 24.5 % (10-50); Mean Corpuscular Hemoglobin 31.7 pg (27.0-31.2); Mean Corpuscular Volume 96.2 fl (81-99); Mean Platelet Volume 9.1 fl (7.4-10.4); Monocytes # 0.6 K/mm3 (0.1-1.0); Monocytes % 6.3 % (1.7-9.3); Neutrophils # 6.4 K/mm3 (1.8-7.8); Neutrophils % 68.7 % (37.0-80.0); Platelet Count 207 K/mm3 (142-424); Red Blood Count 2.65 M/mm3 (4.20-5.40); Red Cell Distribution Width 13.6 % (11.5-17.5); White Blood Count 9.4 K/mm3 (4.8-10.8)
[2023-09-30 07:05] LABS: Chloride 90 mmol/L (98-107); Sodium 128 mmol/L (136-145)
[2023-09-30 07:06] LABS: Potassium 3.1 mmoL/L (3.5-5.1)
[2023-09-30 07:08] LABS: Blood Urea Nitrogen 21 mg/dl (7-17); Creatinine Clearance Estimated 93 mL/min (50-200); Estimated Glomerular Filt Rate 86 ml/min (>60); GFR (African American) 104 ML/MIN (>60)
[2023-09-30 07:09] LABS: Anion Gap 2.1 mEq/L (5-15); Calcium 8.4 mg/dl (8.4-10.2); Carbon Dioxide 39 mmol/L (22.0-30.0); Glucose 104 mg/dl (74-100)
[2023-09-30] MEDS: LACTATED RINGERS 1000ML 1,000 ML 75 ML IV (07:40)
[2023-09-30] MEDS: PANTOPRAZOLE 40MG VIAL 40 MG IV ×2 (09:07→20:31)
[2023-09-30] MEDS: clonazePAM 0.5MG TABLET 0.5 MG PO ×2 (09:08→20:31)
--- NOTE | 2023-09-30 11:03 | P.PNANES_ITS ---
[facility] Disclaimer: The information contained in this section may have been updated after the patient was seen, as this information can be updated by other users. Medical History (Updated 09/29/23 @ 17:25 by Giselle Rodgers MD) HLD (hyperlipidemia) Anxiety HTN (hypertension) Social History Smoking Status: Current every day smoker tobacco type: cigarettes alcohol intake: current substance use type: denies use current occupational status: employed Travel in the last 8 weeks: None [facility] Anesthesia Checklist Patient Identification Patient Identification: Arm Band and Verbal (Name & ) Structural Data Admitted From: Inpatient Planned Operative Procedure/s: EGD Consent for Planned Operative Procedure(s) Verified: Yes Verified Documents: Surgical Consent and History and Physical NPO Status Verified Time NPO: 00:00 Chart Verification Results Verified: CBC, BMP, PT, PTT, INR, ECG and Chest Xray Additional verifications Patient : No Cardiovascular Assessment Heart Sounds: S1 & S2 Pulse Rhythm: Irregular Peripheral Edema: No Airway Assessment Mallampati Score:: Class II C-Spine Mobility Assessed: Yes TMJ Mobility Assessed: Yes Dentition: Edentulous (Top) Neurological Assessment Level of Consciousness: Awake, Alert, Appropriate and Follows Commands Hx Seizures: No Numbness or tingling in extremities: No Anesthesia Plan Anesthesia Risk discussed: Yes Anesthesia Plan: Verified ASA Class: III Anesthesia Type: MAC
--- NOTE | 2023-09-30 11:22 | HMH.SCOPE ---
Procedure: Date: 09/30/23 Patient Date of :: 1965 Procedure Performed:: Esophagogastroduodenoscopy Indications:: Patient is a 58-year-old female from [facility]. General surgery consultation obtained for GI bleed . She presented to the emergency department on 09/29/2023 with epigastric pain and some black tarry stools. Reportedly she has a history of ulcers which was diagnosed clinically. She is on diclofenac for sciatica . She is on 81 mg aspirin. After she was diagnosed apparently with COVID on 09/24/2023 she was taking ibuprofen every 4-6 hours for low-grade fever. She presented mainly with what she described as symptoms of constant sharp and dull epigastric pain radiating into her back. This has been ongoing for several days. Patient does smoke approximately 2 packs of cigarettes daily. She drinks alcohol rarely. Evaluation in the emergency department revealed a hemoglobin of 10.6. Comprehensive metabolic panel notable for sodium of 130, potassium 2.7, BUN 39 with a creatinine of 0.9. She underwent CT angiogram of the abdomen pelvis in the morning of 09/29/2023. Official report is still pending at this time the following day however this appears show findings of significant antral gastritis and duodenitis without extravasation. Overnight her abdominal pain improved somewhat with medical therapy. She showed slight decrease in hemoglobin. Plan was made to proceed with upper endoscopy. Performing Provider:: Paco Christiansen MD Referring Provider:: . Sedation:: MAC sedation Procedure:: Patient history was obtained and appropriate physical examination was performed. Patient's medications and allergies were reviewed. Informed consent was obtained after explaining the benefits, alternatives, and risks of the procedure including, but not limited to, bleeding, perforation, missed lesions, and adverse reaction to anesthesia medications. Patient was transported to endoscopy procedure room. Patient was connected to monitoring devices. Throughout the procedure the patient's blood pressure, pulse, and oxygen saturations were monitored continuously. Patient identification and planned procedure were verified by the staff. Patient was positioned in lateral decubitus position. Olympus endoscope was inserted via the oropharynx. Esophagus was cannulated. Endoscope was advanced. There were findings consistent with mild esophageal dysmotility. Gastroesophageal junction was encountered at 40 cm. Retroflexion revealed a tiny, 2 to 3 cm, sliding hiatal hernia. There is some diffuse moderate gastropathy/gastritis. Most notable in the pyloric channel there were 2 large deep clean-based ulcers with surrounding edema and induration extending into the duodenal bulb. There is no stigmata of recent bleeding. In the antrum in the prepyloric location there was small shallow ulceration. Pylorus was traversed. Within the duodenum there was moderately severe erosive duodenitis. Distal duodenum appeared unremarkable. As there was no evidence of any bleeding and no stigmata of recent bleeding and there were multiple locations (ulcers) noted intervention was not performed due to the potential for initiation of bleeding. Stomach was desufflated and the endoscope was withdrawn. . Findings:: Mild esophageal dysmotility Gastroesophageal junction at 40 cm Tiny sliding hiatal hernia Diffuse gastropathy/gastritis Multiple ulcers (shallow prepyloric, 2 large deep pyloric channel ulcers extending into the duodenum) Severe erosive duodenitis . Recommendations:: Withhold NSAIDs. Maximize medical therapy with proton pump inhibitors and Carafate. Once hemoglobin shows stability may be able to discharge on continued medical therapy with planned outpatient upper endoscopy in the future. Complications:: None immediately apparent Estimated blood obtained (mL): 0 Colonoscopy Component Colonoscopy Component Was a colonoscopy performed during today's procedure?: No
--- NOTE | 2023-09-30 11:26 | EXP.ANES.I ---
[facility] Anesthesia Record Part I Anesthesia Record I Intake, IV Amount: 200 Hydration: Adequate Estimated blood loss (mL): 0 Urine output (mL): 0 Blood Products used (#): none Blood Pressure: 108/59 SaO2: 92 Pulse Rate: 101 Airway Patency: Patent Respiratory Rate: 16 Temperature: 98.5 F Patient is:: Awake (Talking) and Stable Stable to PACU at:: 11:27
[2023-09-30] MEDS: CARVEDILOL 25MG TABLET 25 MG PO ×2 (12:53→20:31)
[2023-09-30] MEDS: ATORVASTATIN 40MG TABLET 40 MG PO (12:54)
[2023-09-30] MEDS: NICOTINE 14MG/24HRS PATCH 14 MG TD (12:55)
--- NOTE | 2023-09-30 13:30 | P.PN_ITS ---
Subjective *Date: 09/30/23 *Time: 13:30 Interval history: patient seen at bedside, no events overnight, no BM reported, patient Hb continues to drop Exam Data for Last 24 hours Vital signs and Labs for Last 24 Hours: Temp Pulse Resp BP Pulse Ox O2 Del Method O2 Flow Rate 98.5 F 101 H 16 108/59 L 92 L Room Air 4 09/30/23 11:27 09/30/23 11:27 09/30/23 11:27 09/30/23 11:27 09/30/23 11:22 09/30/23 11:22 09/30/23 11:11 Laboratory Results - last 24 hr 09/29/23 21:30: Hgb 8.3 L D, Hct 24.4 L 09/30/23 06:02: WBC 9.4 D, RBC 2.65 L, Hgb 8.4 L, Hct 25.5 L, MCV 96.2, MCH 31.7 H, MCHC 33.0, RDW 13.6, Plt Count 207, MPV 9.1, Neut % (Auto) 68.7, Lymph % (Auto) 24.5, [place] % (Auto) 6.3, Eos % (Auto) 0.3, Baso % (Auto) 0.2, Neut # (Au to) 6.4, Lymph # (Auto) 2.3, [place] # (Auto) 0.6, Eos # (Auto) 0.0, Baso # (Auto) 0.0, Sodium 128 L, Potassium 3.1 L, Chloride 90 L, Carbon Dioxide 39 H, Anion Gap 2.1 L, BUN 21 H D, Creatinine 0.70 D, Estimated Creat Clear 93, Estimated GFR 86, Est GFR ( Amer) 104 D, Glucose 104 H D, Calcium 8.4 I & O for Last 24 hours: Intake & Output 09/27/23 09/28/23 09/29/23 09/30/23 23:59 23:59 23:59 23:59 Intake Total 420 / 420 200 / 200 Output Total 0 / 0 0 / 0 Balance 420 / 420 200 / 200 Weight 65.374 kg 67.727 kg Constitutional Constitutional: no acute distress *Routine HEENT Exam Head: Present normocephalic Eye: Present EOMI and PERRL ENT: Present mucous membranes moist *Routine Neck Exam Neck: Present supple; Absent lymphadenopathy *Routine Respiratory Exam Respiratory: Present CTA bilaterally *Routine Cardiovascular Exam Cardiovascular: Present RRR *Routine Abdominal Exam Abdominal: Present soft and normoactive bowel sounds; Absent tenderness *Routine Extremities Exam Extremities: Absent cyanosis, clubbing or edema *Routine Skin Exam Skin: Present warm; Absent rash *Routine Neurological Exam Neurological: Present alert and oriented X3 Assessment and Plan *Assessment and plan (1) GI bleed: Status: Acute Category: Medical Code(s): K92.2 - Gastrointestinal hemorrhage, unspecified (2) Acute blood loss anemia: Status: Acute Category: Medical Code(s): D62 - Acute posthemorrhagic anemia (3) Hypokalemia: Status: Acute Category: Medical Code(s): E87.6 - Hypokalemia Plan Patient is a 58-year-old female who presents to the hospital due to black- colored stools, epigastric abdominal pain. She was recently prescribed NSAIDs for her back pain, she has history of peptic ulcer disease, she also has been utilizing ibuprofen as well as smoking. Patient otherwise denied nausea vomiting diarrhea constipation dysuria. Patient otherwise denied chest pain shortness of breath dizziness lightheadedness. Assessment and plan Melena, GI bleed likely secondary to peptic ulcer secondary to NSAIDs use Anemia of acute blood loss Started IV Protonix 40 twice daily General surgery consulted for possible endoscopy - plan for EGD today Added on sucralfate Monitor H&H Continue IV fluids Unknown baseline hemoglobin, closely monitor for signs of bleeding CT abdomen pelvis performed in the emergency department - Leukocytosis likely reactive - improved -Monitor Hypokalemia Monitor and replace Recheck potassium Hypomagnesemia Monitor and replace DVT PPx- SCDs only
--- NOTE | 2023-09-30 17:27 | PC.NURSE ---
pt is alert and oriented x4, VSS. Pt went for endoscopy this afternoon, she has complained of abdominal pain twice during my shift, treated per MAR. Pt is tolerating a full liquid diet, no complaints of nausea or new onset of abd pain. pt ambulates to the bathroom, bed in lowest position, call light in reach.
[2023-09-30] MEDS: ONDANSETRON 4MG/2ML VIAL 4 MG IV (20:31)
[2023-09-30] MEDS: MELATONIN 5MG TABLET 5 MG PO (20:31)
[2023-10-01] VITALS: BP 91/54; PULSE 80; PULSE 90; RESP 16; TEMP 36.7; O2SAT 94
[2023-10-01] MEDS: MORPHINE 2MG/ML SYRINGE 1 MG IV (00:39)
[2023-10-01 04:00] VITALS: BP 83/59; PULSE 86; PULSE 99; RESP 16; TEMP 37.1; O2SAT 92; BMI 27.4
[2023-10-01 06:31] LABS: Chloride 96 mmol/L (98-107)
[2023-10-01 06:32] LABS: Potassium 3.1 mmoL/L (3.5-5.1); Sodium 131 mmol/L (136-145)
[2023-10-01 06:34] LABS: Blood Urea Nitrogen 10 mg/dl (7-17); Creatinine Clearance Estimated 93 mL/min (50-200); Estimated Glomerular Filt Rate 86 ml/min (>60); GFR (African American) 104 ML/MIN (>60)
[2023-10-01 06:35] LABS: Anion Gap 1.1 mEq/L (5-15); Calcium 8.2 mg/dl (8.4-10.2); Carbon Dioxide 37 mmol/L (22.0-30.0); Glucose 103 mg/dl (74-100)
[2023-10-01 06:43] LABS: Basophils % 0.4 % (0.1-2.0); Eosinophils # 0.1 K/mm3 (0.0-0.4); Eosinophils % 1.2 % (0.1-12.0); Hematocrit 24.3 % (37.0-47.0); Lymphocytes # 2.8 K/mm3 (0.7-4.5); Lymphocytes % 34.1 % (10-50); Mean Corpuscular HGB Conc 32.9 g/dL (31.8-35.4); Mean Corpuscular Hemoglobin 31.8 pg (27.0-31.2); Mean Corpuscular Volume 96.6 fl (81-99); Monocytes # 0.4 K/mm3 (0.1-1.0); Monocytes % 4.3 % (1.7-9.3); Neutrophils # 4.9 K/mm3 (1.8-7.8); Neutrophils % 60.1 % (37.0-80.0); Platelet Count 244 K/mm3 (142-424); Red Blood Count 2.52 M/mm3 (4.20-5.40); Red Cell Distribution Width 13.5 % (11.5-17.5); White Blood Count 8.1 K/mm3 (4.8-10.8)
[2023-10-01] MEDS: SUCRALFATE 1GM/10ML SUSP UDC 1 GM PO ×2 (06:57→11:19)
--- NOTE | 2023-10-01 07:38 | EXP.SURG.PN ---
Subjective Narrative: Patient states that she feels much better. She is tolerating full liquid diet. Her bowels have moved. Hemoglobin 8.0. Exam Data for Last 24 hours Vital signs and Labs for Last 24 Hours: Temp Pulse Resp BP Pulse Ox O2 Del Method O2 Flow Rate 98.8 F 99 H 16 83/59 L 92 L Room Air 4 10/01/23 04:00 10/01/23 04:00 10/01/23 04:00 10/01/23 04:00 10/01/23 04:00 09/30/23 20:00 09/30/23 11:11 Laboratory Results - last 24 hr 10/01/23 06:04: WBC 8.1, RBC 2.52 L, Hgb 8.0 L, Hct 24.3 L, MCV 96.6, MCH 31.8 H, MCHC 32.9, RDW 13.5, Plt Count 244, MPV 9.0, Neut % (Auto) 60.1, Lymph % (Auto) 34.1, [place] % (Auto) 4.3, Eos % (Auto) 1.2, Baso % (Auto) 0.4, Neut # (Auto) 4.9, Lymph # (Auto) 2.8, [place] # (Auto) 0.4, Eos # (Auto) 0.1, Baso # (Auto) 0.0, Sodium 131 L, Potassium 3.1 L, Chloride 96 L, Carbon Dioxide 37 H, Anion Gap 1.1 L, BUN 10 D, Creatinine 0.70, Estimated Creat Clear 93, Estimated GFR 86, Est GFR ( Amer) 104, Glucose 103 H, Calcium 8.2 L I & O for Last 24 hours: Intake & Output 09/28/23 09/29/23 09/30/23 10/01/23 11:59 11:59 11:59 11:59 Intake Total 620 / 620 1080 / 1080 Output Total 0 / 0 0 / 0 Balance 620 / 620 1080 / 1080 Weight 141 lb 149 lb 5 oz 149 lb 4.999 oz *Routine Abdominal Exam Abdominal: Present soft; Absent tenderness Progress Note: A&P Assessment and plan (1) GI bleed: Status: Acute Assessment and plan: May be reasonable for discharge on PPI and Carafate with planned outpatient endoscopy in several weeks.Avoid NSAIDs. (2) Acute blood loss anemia: Status: Acute (3) Hypokalemia: Status: Acute
[2023-10-01 07:44] VITALS: BP 100/60; PULSE 100; RESP 16; TEMP 36.8; O2SAT 92
[2023-10-01 08:00] VITALS: PULSE 100
[2023-10-01] MEDS: PANTOPRAZOLE 40MG VIAL 40 MG IV (08:18)
[2023-10-01] MEDS: clonazePAM 0.5MG TABLET 0.5 MG PO (08:18)
[2023-10-01] MEDS: ATORVASTATIN 40MG TABLET 40 MG PO (08:18)
[2023-10-01] MEDS: CARVEDILOL 25MG TABLET 25 MG PO (08:18)
[2023-10-01] MEDS: SODIUM CHLORIDE 0.9% 10ML VIAL 10 ML IV (08:19)
[2023-10-01] MEDS: miSOPROStoL 200 MCG TABLET PO (08:19)
--- NOTE | 2023-10-01 11:37 | P.DS_ITS ---
General Admission date:: 09/29/23 Discharge date: 10/01/23 HPI HPI HPI: Patient is a 58-year-old female who presents to the hospital due to black- colored stools, epigastric abdominal pain for 3-4 days. She was recently prescribed NSAIDs for her back pain, she has history of peptic ulcer disease, she also has been utilizing ibuprofen as well as smoking. Patient otherwise denied nausea vomiting diarrhea constipation dysuria. Patient otherwise denied chest pain shortness of breath dizziness lightheadedness. Hospital Course Hospital Course Hospital Course: EatingPatient is a 58-year-old female who presents to the hospital due to black- colored stools, epigastric abdominal pain. She was recently prescribed NSAIDs for her back pain, she has history of peptic ulcer disease, she also has been utilizing ibuprofen as well as smoking. Patient otherwise denied nausea vomiting diarrhea constipation dysuria. Patient otherwise denied chest pain shortness of breath dizziness lightheadedness. Surgery was consulted. Patient was scoped and found to have ulcerations. Hemoglobin stabilized. Clinically responding to treatment. Stable to discharge home for further management. Problems addressed as follows: Melena, GI bleed likely secondary to peptic ulcer secondary to NSAIDs use Anemia of acute blood loss -Patient was added on Protonix twice daily. General surgery was consulted. Patient was taken for EGD on 09/29 with finding of ulcers that were nonbleeding. Sulfate was added to her regimen along with misoprostol given concern for NSAID induced ulcerations. Plan to continue this regimen as prescribed. Recommend avoiding NSAIDs specifically diclofenac and ibuprofen. Patient did not require transfusions. Hemoglobin stable above 8 during admission. Initially had a leukocytosis, likely reactive. Improved with monitoring. Electrolyte disturbances were treated with replacement of potassium and magnesium. Given clinical improvement and stability of labs. Patient stable to discharge home to continue medical management. Follow-up as an outpatient with surgery and PCP. Exam Data for Last 24 hours Vital signs and Labs for Last 24 Hours: Temp Pulse Resp BP Pulse Ox O2 Del Method O2 Flow Rate 98.3 F 100 H 16 100/60 L 92 L Room Air 4 10/01/23 07:44 10/01/23 08:00 10/01/23 07:44 10/01/23 07:44 10/01/23 07:44 10/01/23 11:00 09/30/23 11:11 Laboratory Results - last 24 hr 10/01/23 06:04: WBC 8.1, RBC 2.52 L, Hgb 8.0 L, Hct 24.3 L, MCV 96.6, MCH 31.8 H , MCHC 32.9, RDW 13.5, Plt Count 244, MPV 9.0, Neut % (Auto) 60.1, Lymph % (Auto) 34.1, [place] % (Auto) 4.3, Eos % (Auto) 1.2, Baso % (Auto) 0.4, Neut # (Auto) 4.9, Lymph # (Auto) 2.8, [place] # (Auto) 0.4, Eos # (Auto) 0.1, Baso # (Auto) 0.0, Sodium 131 L, Potassium 3.1 L, Chloride 96 L, Carbon Dioxide 37 H, Anion Gap 1.1 L, BUN 10 D, Creatinine 0.70, Estimated Creat Clear 93, Estimated GFR 86, Est GFR ( Amer) 104, Glucose 103 H, Calcium 8.2 L I & O for Last 24 hours: Intake & Output 09/28/23 09/29/23 09/30/23 10/01/23 23:59 23:59 23:59 23:59 Intake Total 420 / 420 1160 / 1280 564 / 564 Output Total 0 / 0 0 / 0 Balance 420 / 420 1160 / 1280 564 / 564 Weight 65.374 kg 67.727 kg 67.727 kg Constitutional Constitutional: no acute distress, average body habitus and cooperative *Routine HEENT Exam Head: Present normocephalic Eye: Present EOMI and PERRL ENT: Present mucous membranes moist *Routine Neck Exam Neck: Present supple; Absent lymphadenopathy *Routine Respiratory Exam Respiratory: Present CTA bilaterally; Absent rhonchi, wheezes or crackles *Routine Cardiovascular Exam Cardiovascular: Present RRR *Routine Abdominal Exam Abdominal: Present soft, normoactive bowel sounds and tenderness (Mild epigastric, improved) *Routine Rectal Exam Patient deferred: visual exam *Routine Exam Patient deferred: external exam *Routine Extremities Exam Extremities: Absent cyanosis, clubbing or edema *Routine Skin Exam Skin: Present warm; Absent rash *Routine Neurological Exam Neurological: Present alert, oriented X3 and moving all extremities; Absent altered mental status Results Data Completed and Pending Labs on day of discharge: Labs from last 24 hours 10/01/23 06:04 WBC 8.1 RBC 2.52 L Hgb 8.0 L Hct 24.3 L MCV 96.6 MCH 31.8 H MCHC 32.9 RDW 13.5 Plt Count 244 MPV 9.0 Neut % (Auto) 60.1 Lymph % (Auto) 34.1 [place] % (Auto) 4.3 Eos % (Auto) 1.2 Baso % (Auto) 0.4 Neut # (Auto) 4.9 Lymph # (Auto) 2.8 [place] # (Auto) 0.4 Eos # (Auto) 0.1 Baso # (Auto) 0.0 Sodium 131 L Potassium 3.1 L Chloride 96 L Carbon Dioxide 37 H Anion Gap 1.1 L BUN 10 D Creatinine 0.70 Estimated Creat Clear 93 Estimated GFR 86 Est GFR ( Amer) 104 Glucose 103 H Calcium 8.2 L DS: Diagnosis Discharge Diagnosis (1) GI bleed: Status: Acute Code(s): K92.2 - Gastrointestinal hemorrhage, unspecified (2) Acute blood loss anemia: Status: Acute Code(s): D62 - Acute posthemorrhagic anemia (3) Hypokalemia: Status: Acute Code(s): E87.6 - Hypokalemia Meds Home Medications and Allergies Home Medications Medication Instructions Recorded Confirmed Type carvedilol 25 mg tablet 25 mg PO BID 11/18/17 09/29/23 History clonazepam 0.5 mg tablet 0.5 mg PO BID 11/18/17 09/29/23 History amlodipine 5 mg tablet 5 mg PO DAILY 09/29/23 09/29/23 History aspirin 81 mg tablet,delayed 81 mg PO DAILY 09/29/23 09/29/23 History release atorvastatin 40 mg tablet 40 mg PO DAILY 09/29/23 09/29/23 History hydrochlorothiazide 12.5 mg tablet 12.5 mg PO DAILY 09/29/23 09/29/23 History misoprostol 200 mcg tablet 200 mcg PO Q6H 7 days #28 tabs 10/01/23 Rx pantoprazole 40 mg tablet,delayed 40 mg PO DAILY 30 days #30 tabs 10/01/23 Rx release sucralfate 1 gram tablet 1 g PO ACHS 7 days #28 tabs 10/01/23 Rx New Prescriptions to Start Prescriptions: misoprostol Mendoza Dowell pantoprazole [facility]ell sucralfate Mendo[facility]ell Allergies Allergy/AdvReac Type Severity Reaction Status Date / Time Beta-Blockers Allergy Verified 06/18/22 09:53 (Beta-Adrenergic Bloc lisinopril Allergy Verified 06/18/22 09:53 Discharge Plan Disposition Patient Disposition: Home, Self-Care Condition: Fair Follow up Plan Follow up with: Paco Christiansen MD [Staff Physician] - 10/22/23 9:15 am Irasema Puga APRN [Primary Care Provider] - 10/11/23 1:00 pm Prescriptions/Medication Reconciliation: New sucralfate 1 gram tablet 1 g PO ACHS 7 Days Qty: 28 0RF pantoprazole 40 mg tablet,delayed release (DR/EC) 40 mg PO DAILY 30 Days Qty: 30 0RF misoprostol 200 mcg Tablet 200 mcg PO Q6H 7 Days Qty: 28 0RF Continued carvedilol 25 MG tablet 25 mg PO BID clonazepam 0.5 MG tablet 0.5 mg PO BID atorvastatin 40 mg tablet 40 mg PO DAILY Patient Comments: TAKE 1 TABLET 1 TIME EACH DAY aspirin 81 mg tablet,delayed release (DR/EC) 81 mg PO DAILY Patient Comments: TAKE 1 TABLET 1 TIME EACH DAY hydrochlorothiazide 12.5 mg tablet 12.5 mg PO DAILY Patient Comments: TAKE 1 TABLET 1 TIME EACH DAY Held amlodipine 5 mg tablet 5 mg PO DAILY Hold Instructions: pending follow-up with PCP and recheck of BP Patient Comments: TAKE 1 TABLET 1 TIME EACH DAY Discontinued diclofenac sodium 75 mg tablet,delayed release (DR/EC) 75 mg PO BID Problem Reconciliation Problems Reviewed?: Yes Patient Discharge Instructions ACTIVITY: Continue current activity DIET: continue same diet Patient Instructions: DI for Gastrointestinal Bleeding, Gastrointestinal Bleeding Providers Primary Care Provider: Irasema Puga Admit Provider: Giselle Rodgers Attending Provider: Giselle Rodgers
--- NOTE | 2023-10-02 14:24 | CARE MANAGER ---
contacted number listed in chart and was number for friend. She states the patient is doing well and that she saw her this morning. She is taking her medication and doing better. They deny any questions or concerns at this time. ITZEL Clarke
== END 2023-10-01 12:24 | disposition home or self-care (01) ==
LOC: ER 09:24 → 2ND 14:13
PROVIDERS: Surgery; Admitting Provider Internal Medicine; Emergency Provider Emergency Medicine; PCP Nurse Practitioner; Visit Provider Internal Medicine
PROC: 0DJ08ZZ Inspection of Upper Intestinal Tract, Via Natural or Artificial Opening Endoscopic (ICD-10-PCS; CPT 43235; principal; 2023-09-30 11:00)
DX: T39.315A Adverse effect of propionic acid derivatives, initial encounter; K25.4 Chronic or unspecified gastric ulcer with hemorrhage; E87.6 Hypokalemia; D62 Acute posthemorrhagic anemia; F17.210 Nicotine dependence, cigarettes, uncomplicated; K44.9 Diaphragmatic hernia without obstruction or gangrene; K22.4 Dyskinesia of esophagus; K29.61 Other gastritis with bleeding; Z79.899 Other long term (current) drug therapy
CPT/HCPCS: 43235; 36415; 74174; 80048; 80053; 81001; 83690; 83735; 85007; 85014; 85018; 85025; 85610; 86850; 87636; 93005; 99285; G0378; J2405; J3475; Q9967

== ENCOUNTER 2023-12-03 08:52 | Observation (INO) | payer OTHER, SELFPAY ==
[2023-12-03] VITALS (8 sets, daily range): BP systolic 108–135; BP diastolic 61–84; PULSE 62–109; RESP 16–18; TEMP 36.6–36.7; O2SAT 94–98; BMI 26.2; BMI 25.0
--- NOTE | 2023-12-03 09:02 | ECG_ITS ---
APPROVED REPORT Exam: Resting ECG HR:109 bpm ECG Measurements Heart Rate 109 AXES VA 162 P 73 QRSd 94 QRS -64 QT 356 T 74 QTc 420 Conclusion SINUS TACHYCARDIA LEFT AXIS DEVIATION [QRS AXIS < -30] ABNORMAL ECG Electronically signed by : LINDA PAYAN, 12/04/2023 21:50:20
--- NOTE | 2023-12-03 09:10 | CT_ITS ---
FINAL REPORT TECHNIQUE: After the administration of intravenous contrast, axial images were obtained through the abdomen and pelvis by computed tomography. The study was performed with techniques to keep radiation dose as low as reasonably achievable, (ALARA). Individual dose reduction techniques using automated exposure control or adjustment of mA and/or kV according to the patient's size were employed. CLINICAL HISTORY: L side abd pain w/ n/v COMPARISON: CTA 09/29/2023 FINDINGS: Abdomen: No acute density is seen within the lung bases. Multiple hepatic cysts are noted. Solid abdominal organs are otherwise unremarkable. The gallbladder is normal. No bowel obstruction is present. There is no free air. No fluid collection is seen. There is no adenopathy. Pelvis: The appendix is nonvisualized. There is mild bladder wall thickening which is nonspecific given for distention of the bladder. Status post hysterectomy. Fecal impaction is noted of the rectosigmoid colon measuring up to 6 cm in diameter. There is no free fluid. No pelvic mass is seen. IMPRESSION: No upper urinary tract obstruction or obvious pyelonephritis. Mild fecal impaction of the rectosigmoid colon. Reviewed, Interpreted and Dictated by Leonardo Villatoro MD Transcribed by Yesi Anderson Authenticated and . [facility]
--- NOTE | 2023-12-03 09:10 | CT_ITS ---
FINAL REPORT TECHNIQUE: Thin section axial CT with contrast with multiplanar reconstruction. This study was performed with techniques to keep radiation doses as low as reasonably achievable (ALARA). Individualized dose reduction techniques using automated exposure control or adjustment of mA and/or kV according to the patient's size were employed. CLINICAL HISTORY: tachy light headed FINDINGS: Pulmonary vessels enhance in normal fashion without evidence of embolism. Thoracic aorta shows no dissection or aneurysm. No pulmonary mass or infiltrate is present. There is no significant pleural effusion. There is no significant pericardial effusion. No mediastinal or hilar adenopathy is present. IMPRESSION: No evidence of pulmonary embolism. Reviewed, Interpreted and Dictated by Leonardo Villatoro MD Transcribed by Lila Arroyo Authenticated and [facility]
--- NOTE | 2023-12-03 09:12 | ED_ITS ---
Discharge Plan Disposition Patient Disposition: Admitted Prescriptions Prescriptions: No Action carvedilol 25 MG tablet 25 mg PO BID clonazepam 0.5 MG tablet 0.5 mg PO BID atorvastatin 40 mg tablet 40 mg PO DAILY Patient Comments: TAKE 1 TABLET 1 TIME EACH DAY amlodipine 5 mg tablet 5 mg PO DAILY Hold Instructions: pending follow-up with PCP and recheck of BP Patient Comments: TAKE 1 TABLET 1 TIME EACH DAY aspirin 81 mg tablet,delayed release (DR/EC) 81 mg PO DAILY Patient Comments: TAKE 1 TABLET 1 TIME EACH DAY hydrochlorothiazide 12.5 mg tablet 12.5 mg PO DAILY Patient Comments: TAKE 1 TABLET 1 TIME EACH DAY sucralfate 1 gram tablet 1 g PO ACHS 7 Days Qty: 28 0RF pantoprazole 40 mg tablet,delayed release (DR/EC) 40 mg PO DAILY 30 Days Qty: 30 0RF misoprostol 200 mcg Tablet 200 mcg PO Q6H 7 Days Qty: 28 0RF Referrals Follow up/Referrals: Irasema Puga APRN [Primary Care Provider] - See instructions Clinical Impressions Clinical Impression: Nausea & vomiting Discharge ED Provider: Flavia Kraft General Adult HPI General Chief complaint: Weakness Stated complaint: weak, lightheaded, vomiting Time Seen by Provider: 12/03/23 09:00 Mode of Arrival: Wheelchair Source of Information: Patient Limitations: No Limitations Description of Symptoms (Recalled from ER Triage Doc. by RN): Patient reports increased weakness, throwing up and dizziness since Saturday. History of Present Illness HPI narrative: 58-year-old female with history of prior bleeding ulcer that caused her to be hospitalized presents to the ER for concerns of generalized weakness, dizziness upon standing that she describes as lightheadedness, feeling hot, and getting tunnel vision, but not actually syncopizing. The symptoms have been going on for the last 2 days. This morning, patient also started having vomiting. She states she is nauseous and her vomiting is described as green with coffee grounds mixed in. Patient states she has been taking her stomach medication as prescribed. She describes mild left upper abdominal pain which she states is improved since her ulcers were bleeding, but has never gone away fully. She states it is not specifically worse today than it usually is. She denies any chest pain, shortness of breath, or diarrhea. She states she has chronic constipation only having a few small rabbit pellets of bowel movement daily. She is not on any medications for constipation. Patient states she follows with Dr. Christiansen for ulcers. Patient states she has been eating and drinking some, though on further discussion states all she ate yesterday with cottage cheese and she is only drinking 2 bottles of water per day. She states she has had tubal ligation, hysterectomy, and oophorectomy. She states that she is an active smoker. Additionally, she drinks multiple shots at least 2 to 3 days a week. She denies ever having gone through alcohol withdrawal. Review of consultation note with Dr. Christiansen from her most recent admission demonstrates he was consulted for concerns of ulcers and blood loss anemia with black tarry stools. Patient denies tarry stools today. Her most recent EGD showed hiatal hernia, gastritis, multiple ulcers, severe erosive duodenitis. Recommendations from Dr. Christiansen at that time were to withhold NSAIDs, patient states she is no longer taking her daily aspirin. She was to be treated with PPI and Carafate. She only received a 7-day prescription for Carafate. Patient's friend at bedside pulled me aside independently patient and told me that patient is not being honest about her alcohol intake, she does drink daily, usually vodka, and reportedly patient has told the friend that she is going to seek help after these ongoing problems. They both believe the drinking could be contributing to her current condition. Related Data Home Medications Medication Instructions Recorded Confirmed carvedilol 25 mg tablet 25 mg PO BID 11/18/17 09/29/23 clonazepam 0.5 mg tablet 0.5 mg PO BID 11/18/17 09/29/23 amlodipine 5 mg tablet 5 mg PO DAILY 09/29/23 09/29/23 aspirin 81 mg tablet,delayed 81 mg PO DAILY 09/29/23 09/29/23 release atorvastatin 40 mg tablet 40 mg PO DAILY 09/29/23 09/29/23 hydrochlorothiazide 12.5 mg tablet 12.5 mg PO DAILY 09/29/23 09/29/23 Previous Rx's Medication Instructions Recorded misoprostol 200 mcg tablet 200 mcg PO Q6H 7 days #28 tabs 10/01/23 pantoprazole 40 mg tablet,delayed 40 mg PO DAILY 30 days #30 tabs 10/01/23 release sucralfate 1 gram tablet 1 g PO ACHS 7 days #28 tabs 10/01/23 Allergies Allergy/AdvReac Type Severity Reaction Status Date / Time Beta-Blockers Allergy Verified 06/18/22 09:53 (Beta-Adrenergic Bloc lisinopril Allergy Verified 06/18/22 09:53 [facility] Disclaimer: The information contained in this section may have been updated after the patient was seen, as this information can be updated by other users. Medical History (Updated 12/03/23 @ 12:14 by Flavia Kraft MD) HLD (hyperlipidemia) Anxiety HTN (hypertension) Social History (Updated 09/30/23 @ 11:04 by Bernadette Forte CRNA) Smoking Status: Current every day smoker tobacco type: cigarettes alcohol intake: current substance use type: denies use current occupational status: employed Travel in the last 8 weeks: None ROS Obtained: Yes All systems reviewed & no additional complaints except as documented Constitutional Constitutional: Denies chills, Denies fever(s), Denies headache(s), Reports malaise and Denies weakness Eyes Eyes: Denies change in vision ENT Ears, Nose, Mouth, and Throat: Reports dizziness (Described as lightheadedness, not room spinning), Denies headache(s), Denies nasal congestion and Denies sore throat Cardiovascular Cardiovascular: Denies chest pain, Denies dyspnea and Denies leg edema Respiratory Respiratory: Denies cough and Denies dyspnea Gastrointestinal Gastrointestingal: Reports abdominal pain, constipation, nausea and vomiting; Denies diarrhea Genitourinary Female Genitourinary: Denies dysuria Musculoskeletal Musculoskeletal: Denies arthralgias, Denies myalgias, Denies numbness and Denies tingling Integumentary/Breasts Skin/Breast: Denies change in pigmentation Neurologic Neurologic: Reports dizziness (Described as lightheadedness, not room spinning), Denies headache(s), Denies numbness, Denies tingling and Denies weakness Physical Exam General General appearance: alert and in no apparent distress Head Head exam: atraumatic and normocephalic Eye Eye exam: Present PERRL and EOMI ENT ENT exam: Present mucous membranes dry Neck Neck exam: Present normal inspection and full ROM Chest Chest inspection: Present symmetric chest wall rise Respiratory Respiratory exam: Present normal lung sounds bilaterally; Absent respiratory distress, wheezes or stridor Cardiovascular Cardiovascular exam: Present normal rhythm and tachycardia Abdominal Exam Abdominal exam: Present soft and tenderness (Reported tenderness in the epigastric/left upper quadrant without rebound or guarding); Absent distention, guarding or rebound Extremities Exam Extremities exam: Present full ROM Neurological Exam Neurological exam: Present alert and oriented X3; Absent motor sensory deficit Psychiatric Psychiatric exam: Present normal affect and normal mood Skin Skin exam: Present warm, dry and other (Capillary refill 2-3 seconds) Medical Decision Making Medical Records Medical records reviewed: Yes I reviewed the patient's medical records. MR Comment: See HPI for details Marcus Inquiry Pt receiving controlled substance: No Vital Signs: 12/03/23 08:53 12/03/23 11:11 Temperature 98.0 F Temperature Source Oral Pulse Rate 102 H Pulse Rate [Radial] 109 H Respiratory Rate 18 Blood Pressure 116/65 Blood Pressure [Right Arm] 135/82 Blood Pressure Mean [Right Arm] 99 Blood Pressure Source [Right Arm] Automatic Cuff Blood Pressure Position [Right Arm] Sitting 02 Sat by Pulse Oximetry 96 96 Oxygen Delivery Method Room Air Room Air Lab Data Lab Results 12/03/23 09:51: WBC 9.4, RBC 4.81, Hgb 14.7, Hct 46.4, MCV 96.6, MCH 30.6, MCHC 31.7 L, RDW 14.3, Plt Count 293, MPV 8.9, Neut % (Auto) 84.4 H, Lymph % (Auto) 12.2, [place] % (Auto) 2.4, Eos % (Auto) 0.2, Baso % (Auto) 0.9, Neut # (Auto) 8.0 H, Lymph # (Auto) 1.1, [place] # (Auto) 0.2, Eos # (Auto) 0.0, Baso # (Auto) 0.1, P T 9.9 L, INR 0.91, Sodium 136, Potassium 3.2 L, Chloride 92 L, Carbon Dioxide 12 L, Anion Gap 35.2 H, BUN 20 H, Creatinine 1.10 H, Estimated Creat Clear 58, E stimated GFR 51 L, Est GFR ( Amer) 62, Glucose 87, Lactate 4.5 H, Calcium 9.8, Total Bilirubin 0.7, AST 57 H, ALT 39, Alkaline Phosphatase 105, Troponin I < 0.01, Total Protein 8.8 H D, Albumin 5.5 H, Globulin 3.3 H, Albumin/Globulin Ratio 1.7, Lipase 232 12/03/23 10:30: Urine Color Yellow, Urine Appearance Clear, Urine pH 6.0, Ur Specific [place] >= 1.030, Urine Protein 1+, Urine Glucose (UA) Negative, Urine Ketones 3+, Urine Blood Trace-i, Urine Nitrate Negative, Urine Bilirubin 1+ A, Urine Urobilinogen 0.2, Ur Leukocyte Esterase Negative, Urine RBC Occasional, Urine WBC Occasional, Ur Squamous Epith Cells 3-5, Urine Bacteria Trace 12/03/23 10:34: VBG pH 7.22 L, VBG pCO2 30.1 L, VBG pO2 75.0 H, VBG HCO3 12.2 L, VBG Total CO2 13.1 L, VBG O2 Saturation 90.8 H, VBG Base Excess -15.5 L, VBG Lactic Acid 6.1 H 12/03/23 09:51 12/03/23 09:51 Orders (Tests/Meds): ED MEDICATIONS Generic Name Dose Route Start Last Admin Trade Name Freq PRN Reason Stop Dose Admin Potassium Chloride 40 meq 12/03/23 12:14 Potassium Chloride 20meq Tab PO 12/03/23 12:15 ONCE ONE Sodium Chloride 10 ml 12/03/23 09:10 Sodium Chloride 0.9% 10ml Vial IV 01/02/24 09:09 NEEDED PRN dilute protonix Discontinued Medications Generic Name Dose Route Start Last Admin Trade Name Freq PRN Reason Stop Dose Admin Acetaminophen 1,000 mg 12/03/23 10:24 12/03/23 10:34 Acetaminophen 1,000mg/100ml Vial IV 12/03/23 10:25 1,000 mg ONCE ONE Administration Lactated Ringer's 1,000 mls @ 999 mls/hr 12/03/23 09:10 12/03/23 09:16 Lactated Ringer's 1000 Ml Bag IV 12/03/23 10:10 999 mls/hr .Q1H1M ONE Administration Iopamidol 75 ml 12/03/23 10:38 12/03/23 10:40 Iopamidol-370 (76%);100ml Bottle IV 12/03/23 10:39 75 ml ONCE ONE Administration Morphine Sulfate 4 mg 12/03/23 11:04 12/03/23 11:26 Morphine 4mg/Ml Syringe IV 12/03/23 11:05 4 mg ONCE ONE Administration Ondansetron HCl 4 mg 12/03/23 09:10 12/03/23 09:16 Ondansetron 4mg/2ml Vial IV 12/03/23 09:11 4 mg ONCE ONE Administration Pantoprazole Sodium 40 mg 12/03/23 09:10 12/03/23 09:16 Pantoprazole 40mg Vial IV 12/03/23 09:11 40 mg ONCE ONE Administration Sodium Chloride 50 ml 12/03/23 10:38 12/03/23 10:40 0.9 % Sodium Chloride 50 Ml Vial IV 12/03/23 10:39 50 ml ONCE ONE Administration Sodium Chloride 10 ml 12/03/23 10:38 12/03/23 10:40 Sodium Chloride 0.9% 10ml Syr (Rad Only) IV 12/03/23 10:39 10 ml ONCE ONE Administration ORDERS Category Date Time Status CT abdomen pelvis w con Stat Cat Scan 12/03/23 09:[address] angio chest PE protocol Stat Cat Scan 12/03/23 09:10 Taken CBC w/Auto Diff [Complete Blood Count Auto Diff] Stat Lab 12/03/23 09:51 Completed CMP [Comprehensive Metabolic Panel] Stat Lab 12/03/23 09:51 Completed Lactic Acid Stat Lab 12/03/23 09:51 Completed Lipase Stat Lab 12/03/23 09:51 Completed PT INR [Prothrombin Time INR] Stat Lab 12/03/23 09:51 Completed Trop I [Troponin I] Stat Lab 12/03/23 09:51 Completed Troponin I Q3H Lab 12/03/23 12:15 Ordered Troponin I Q3H Lab 12/03/23 15:15 Ordered Urinalysis and Microscopic Stat Lab 12/03/23 10:30 Completed VBG [Venous Blood Gas] Stat RT 12/03/23 10:34 Completed HEART Score History (anamnesis): Slightly suspicious ECG: Non-specific disturbance Age: 45-65 years Risk factors: 1-2 risk factors Troponin: </= normal limit HEART Score: 3 Medical Decision Narrative: In summary, this 58-year-old female with a history of bleeding ulcers which is a comorbidity of her current condition and increases overall morbidity presents to the emergency department today with concerns of epigastric left upper quadrant abdominal pain, dizziness, nausea, vomiting. On initial evaluation patient is mildly tachycardic but otherwise hemodynamically stable, afebrile, capillary refill is 2 to 3 seconds with dry mucous membranes, patient clinically appears mildly dehydrated, abdomen is soft with mild epigastric and left upper quadrant tenderness, no rebound or guarding, nonacute abdomen. Patient does have additional comorbidities of hypertension hyperlipidemia which increases risk of ACS. She also has a history of multiple abdominal surgeries increasing risk of adhesions and possible bowel obstruction. Differential diagnosis includes but is not limited to bowel obstruction, ACS, anemia, dehydration, electrolyte abnormality, PE, given patient's history, also possible that patient has bleeding ulcers though these are difficult to identify in the ER. Also considered possibility of urinary tract infection. Based on these concerns, I ordered broad workup including cardiac workup, CT PE, CT abdomen pelvis, serum labs. ECG personally interpreted demonstrates sinus tachycardia, rate 109, left axis deviation, OH normal at 162, QTc normal at 420, no STEMI. Patient received IV fluids, Zofran, Protonix for treatment. Labs personally reviewed demonstrate hemoglobin normal at 14.7 which is reassuring against significant blood loss, no leukocytosis, PT/INR unremarkable, mild hypokalemia, patient will receive oral repletion, patient has new kidney dysfunction with creatinine 1.10, up from 0.70 2 months ago. Initial troponin undetectably low at less than 0.01, since patient is not having chest pain or shortness of breath, and symptoms of dizziness have been going on since Saturday, I have very low suspicion for ACS. Lipase normal at 232, no findings of pancreatitis. VBG was ordered secondary to anion gap being present on CMP. pH 7.22. Lactic is elevated at 6.10, lactic had been noted to be greater than 4 on CMP. Patient shows findings of metabolic acidosis with anion gap secondary to lactic elevation CT abdomen pelvis personally interpreted does not demonstrate any acute surgical pathology in the abdomen. Patient has previously known liver cysts that are still present. See radiology read for final interpretation. CTA PE was personally interpreted I do not appreciate large PE. See radiology read for final interpretation. On reassessment patient is asking for water and was able to tolerate this at this time. Unfortunately with her significant lactic acidosis, anion gap, and kidney dysfunction, she requires admission. I discussed this with the hospitalist who is accepted the patient for admission. Critical Care Critical Care Time Critical Care Time: No
[2023-12-03] MEDS: ONDANSETRON 4MG/2ML VIAL 4 MG IV ×3 (09:16→21:53)
[2023-12-03] MEDS: LACTATED RINGERS 1000ML 1,000 ML 999 ML IV (09:16)
[2023-12-03] MEDS: PANTOPRAZOLE 40MG VIAL 40 MG IV (09:16)
[2023-12-03 10:02] LABS: Basophils # 0.1 K/mm3 (0-0.2); Basophils % 0.9 % (0.1-2.0); Eosinophils % 0.2 % (0.1-12.0); Hematocrit 46.4 % (37.0-47.0); Hemoglobin 14.7 g/dL (12.2-16.2); Lymphocytes # 1.1 K/mm3 (0.7-4.5); Lymphocytes % 12.2 % (10-50); Mean Corpuscular HGB Conc 31.7 g/dL (31.8-35.4); Mean Corpuscular Hemoglobin 30.6 pg (27.0-31.2); Mean Corpuscular Volume 96.6 fl (81-99); Mean Platelet Volume 8.9 fl (7.4-10.4); Monocytes # 0.2 K/mm3 (0.1-1.0); Monocytes % 2.4 % (1.7-9.3); Neutrophils % 84.4 % (37.0-80.0); Platelet Count 293 K/mm3 (142-424); Red Blood Count 4.81 M/mm3 (4.20-5.40); Red Cell Distribution Width 14.3 % (11.5-17.5); White Blood Count 9.4 K/mm3 (4.8-10.8)
[2023-12-03 10:05] LABS: Chloride 92 mmol/L (98-107); Potassium 3.2 mmoL/L (3.5-5.1); Sodium 136 mmol/L (136-145)
[2023-12-03 10:07] LABS: Alanine Aminotransferase 39 U/L (12-78); Aspartate Amino Transferase 57 U/L (14-36); Bilirubin,Total 0.7 mg/dl (0.2-1.3); Blood Urea Nitrogen 20 mg/dl (7-17); Creatinine Clearance Estimated 58 mL/min (50-200); Estimated Glomerular Filt Rate 51 ml/min (>60); GFR (African American) 62 ML/MIN (>60)
[2023-12-03 10:08] LABS: Albumin Level 5.5 g/dl (3.5-5.0); Albumin/Globulin Ratio 1.7 (1.1-1.8); Alkaline Phosphatase 105 U/L (38-126); Anion Gap 35.2 mEq/L (5-15); Calcium 9.8 mg/dl (8.4-10.2); Carbon Dioxide 12 mmol/L (22.0-30.0); Globulin 3.3 g/dL (1.3-3.2); Glucose 87 mg/dl (74-100); Lipase 232 U/L (23-300); Total Protein,Serum 8.8 g/dl (6.3-8.2)
[2023-12-03 10:10] LABS: INR 0.91 (0.9-1.1); Prothrombin Time 9.9 seconds (10.1-12.5)
[2023-12-03 10:13] LABS: Lactic Acid 4.5 mmol/L (0.7-2.1)
--- NOTE | 2023-12-03 10:14 | PC.NURSE ---
notified of lactic of 4.5.
[2023-12-03 10:21] LABS: Troponin I < 0.01 ng/ml (0.00-0.034)
[2023-12-03] MEDS: ACETAMINOPHEN 1,000MG/100ML VIAL 1000 MG IV (10:34)
[2023-12-03 10:36] LABS: Microscopic, Urine URINE MICROSCOPIC (MICROSCOPIC)
[2023-12-03 10:40] LABS: Appearance,Urine CLEAR (Clear); Blood, Urine TRACE-I (Negative); Color,Urine YELLOW (Yellow); Glucose,Urine (UA) Negative (Negative); Ketones,Urine 3+ (Negative); Leukocyte Esterase,Urine Negative (Negative); Nitrate,Urine Negative (Negative); Protein,Urine 1+ (Negative); Specific Gravity, Urine >= 1.030 (1.005-1.030); Urobilinogen,Urine 0.2 EU/dl (0.2)
[2023-12-03] MEDS: 0.9 % SODIUM CHLORIDE 50 ML VIAL IV (10:40)
[2023-12-03] MEDS: SODIUM CHLORIDE 0.9% 10ML SYR (RAD ONLY) 10 ML IV (10:40)
[2023-12-03] MEDS: IOPAMIDOL-370 (76%);100ML BOTTLE 75 ML IV (10:40)
[2023-12-03 10:50] LABS: VBG Base Excess -15.5 mmol/L (-2.4-2.3); VBG HCO3 12.2 mmol/L (23-30); VBG Oxygen Saturation 90.8 % (50-70); VBG PCO2 30.1 mmol/L (35-51); VBG PH 7.22 mmol/L (7.31-7.41); VBG Total CO2 13.1 mmol/L (23-27)
[2023-12-03 10:52] LABS: Bacteria,Urine Trace /lpf; Bilirubin,Urine 1+ (Negative); RBC,Urine Occasional #/hpf (0-3); WBC,Urine Occasional #/hpf (0-3)
[2023-12-03 10:53] LABS: Lactate Venous 6.1 mmol/L (0.4-2.0)
[2023-12-03] MEDS: MORPHINE 4MG/ML SYRINGE 4 MG IV (11:26)
--- NOTE | 2023-12-03 12:27 | PC.NURSE ---
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
[2023-12-03] MEDS: POTASSIUM CHLORIDE 20MEQ TAB 40 MEQ PO (12:50)
--- NOTE | 2023-12-03 12:59 | HMH.PHAINT1 ---
Pharmacy Intervention Comments: MEDICATION RECONCILIATION COMPLETED ON PATIENT USING EXTERNAL FILL HISTORY FROM PHARMACY. -HERMILA WALKER, [place]
[2023-12-03 13:01] LABS: Troponin I < 0.01 ng/ml (0.00-0.034)
[2023-12-03] MEDS: HEPARIN SODIUM 5,000 UNIT/ML VIAL 5000 UNIT SQ ×2 (13:13→20:04)
[2023-12-03] MEDS: 0.9 % SODIUM CHLORIDE 1000ML 1,000 ML 50 ML IV (13:13)
[2023-12-03 13:31] LABS: Lactic Acid 3.7 mmol/L (0.7-2.1)
[2023-12-03] MEDS: ACETAMINOPHEN 325MG TAB 650 MG PO ×2 (13:36→20:03)
[2023-12-03 15:40] LABS: Lactic Acid Follow Up (RFLX 1) 2.7 mmol/L (0.7-2.1)
[2023-12-03 15:54] LABS: Troponin I < 0.01 ng/ml (0.00-0.034)
[2023-12-03] MEDS: MORPHINE 2MG/ML SYRINGE 1 MG IV (16:07)
[2023-12-03] MEDS: NICOTINE 21MG/24HR PATCH 21 MG TD (16:22)
[2023-12-03 17:17] LABS: Reflex Lactic (2 hrs) Add Lactic Reflex
[2023-12-03 18:12] LABS: Lactic Acid Follow up (RFLX 2) 1.4 mmol/L (0.7-2.1)
--- NOTE | 2023-12-03 18:24 | P.HP_ITS ---
History of Present Illness *Admission Date: 12/03/23 *Reason for visit:: Nausea vomiting *History of present illness: Patient is a 58-year-old female who presented to hospital due to generalized weakness lightheadedness vomiting. According the patient he has been having symptoms for the past 2 days. Since she has not been able to hold down food or liquids and decided to come to the hospital. Otherwise denied chest pain shortness of breath. She also mentions she has been having vomiting and she is not sure if she has not noticed any blood in her vomiting. Denies fevers chills diarrhea. On further evaluation patient was noticed to have lactic acidosis, hypokalemia anion gap and was admitted for further management [facility] Disclaimer: The information contained in this section may have been updated after the patient was seen, as this information can be updated by other users. Medical History (Updated 12/03/23 @ 12:26 by Flavia Kraft MD) HLD (hyperlipidemia) Anxiety HTN (hypertension) Social History (Updated 09/30/23 @ 11:04 by Bernadette Forte CRNA) Smoking Status: Current every day smoker tobacco type: cigarettes alcohol intake: current substance use type: denies use current occupational status: employed Travel in the last 8 weeks: None Review of Systems Review of Systems Review of systems:: pertinent systems reviewed and negative unless documented below Constitutional Constitutional: Denies headache(s) and Denies weakness ENT Ears, Nose, Mouth, and Throat: Reports dizziness (Described as lightheadedness, not room spinning) and Denies headache(s) *Musculoskeletal Musculoskeletal: Denies numbness and Denies tingling *Neurologic Neurologic: Reports dizziness (Described as lightheadedness, not room spinning), Denies headache(s), Denies numbness, Denies tingling and Denies weakness Meds Home Medications and Allergies Home Medications Medication Instructions Recorded Confirmed Type clonazepam 0.5 mg tablet 0.5 mg PO BID 11/18/17 12/03/23 History atorvastatin 40 mg tablet 40 mg PO DAILY 09/29/23 12/03/23 History hydrochlorothiazide 12.5 mg tablet 12.5 mg PO DAILY 09/29/23 12/03/23 History pantoprazole 40 mg tablet,delayed 40 mg PO DAILY 30 days #30 tabs 10/01/23 12/03/23 Rx release amlodipine 5 mg tablet 5 mg PO DAILY 12/03/23 12/03/23 History potassium chloride 10 mEq 10 meq PO DAILY 12/03/23 12/03/23 History capsule,extended release sucralfate 1 gram tablet 1 g PO BID 12/03/23 12/03/23 History New Prescriptions to Start Prescriptions: Allergies Allergy/AdvReac Type Severity Reaction Status Date / Time Beta-Blockers Allergy Verified 06/18/22 09:53 (Beta-Adrenergic Bloc lisinopril Allergy Verified 06/18/22 09:53 Exam Data for Last 24 hours Vital signs and Labs for Last 24 Hours: Temp Pulse Resp BP Pulse Ox O2 Del Method 98 F 62 16 119/72 94 L Room Air 12/03/23 16:00 12/03/23 16:00 12/03/23 16:00 12/03/23 16:00 12/03/23 16:00 12/03/23 16:47 Laboratory Results - last 24 hr 12/03/23 09:51: WBC 9.4, RBC 4.81, Hgb 14.7, Hct 46.4, MCV 96.6, MCH 30.6, MCHC 31.7 L, RDW 14.3, Plt Count 293, MPV 8.9, Neut % (Auto) 84.4 H, Lymph % (Auto) 12.2, [place] % (Auto) 2.4, Eos % (Auto) 0.2, Baso % (Auto) 0.9, Neut # (Auto) 8.0 H, Lymph # (Auto) 1.1, [place] # (Auto) 0.2, Eos # (Auto) 0.0, Baso # (Auto) 0.1, PT 9.9 L, INR 0.91, Sodium 136, Potassium 3.2 L, Chloride 92 L, Carbon Dioxide 12 L, Anion Gap 35.2 H, BUN 20 H, Creatinine 1.10 H, Estimated Creat Clear 58, Estimated GFR 51 L, Est GFR ( Amer) 62, Glucose 87, Lactate 4.5 H, Calcium 9.8, Total Bilirubin 0.7, AST 57 H, ALT 39, Alkaline Phosphatase 105, Troponin I < 0.01, Total Protein 8.8 H D, Albumin 5.5 H, Globulin 3.3 H, Albumin/Globulin Ratio 1.7, Lipase 232 12/03/23 10:30: Urine Color Yellow, Urine Appearance Clear, Urine pH 6.0, Ur Specific [place] >= 1.030, Urine Protein 1+, Urine Glucose (UA) Negative, Urine Ketones 3+, Urine Blood Trace-i, Urine Nitrate Negative, Urine Bilirubin 1+ A, Urine Urobilinogen 0.2, Ur Leukocyte Esterase Negative, Urine RBC Occasional, Urine WBC Occasional, Ur Squamous Epith Cells 3-5, Urine Bacteria Trace 12/03/23 10:34: VBG pH 7.22 L, VBG pCO2 30.1 L, VBG pO2 75.0 H, VBG HCO3 12.2 L, VBG Total CO2 13.1 L, VBG O2 Saturation 90.8 H, VBG Base Excess -15.5 L, VBG Lactic Acid 6.1 H 12/03/23 12:27: Troponin I < 0.01 12/03/23 12:53: Lactate 3.7 H 12/03/23 15:15: Lactate 2.7 H, Troponin I < 0.01 12/03/23 17:47: Lactate 1.4 I & O for Last 24 hours: Intake & Output 11/30/23 12/01/23 12/02/23 12/03/23 23:59 23:59 23:59 23:59 Intake Total 600 / 600 Balance 600 / 600 Weight 64.002 kg Constitutional Constitutional: no acute distress *Routine HEENT Exam Head: Present normocephalic Eye: Present EOMI and PERRL ENT: Present mucous membranes moist *Routine Neck Exam Neck: Present supple; Absent lymphadenopathy *Routine Respiratory Exam Respiratory: Present CTA bilaterally *Routine Cardiovascular Exam Cardiovascular: Present RRR *Routine Abdominal Exam Abdominal: Present soft and normoactive bowel sounds; Absent tenderness *Routine Rectal Exam Rectal:: deferred *Routine Genitalia Exam Genitalia:: deferred *Routine Extremities Exam Extremities: Absent cyanosis, clubbing or edema *Routine Skin Exam Skin: Present warm; Absent rash *Routine Neurological Exam Neurological: Present alert and oriented X3 Assessment and Plan *Assessment and plan (1) Kidney dysfunction: Status: Acute Category: Medical Code(s): N28.9 - Disorder of kidney and ureter, unspecified (2) Acidosis, lactic: Status: Acute Category: Medical Code(s): E87.20 - Acidosis, unspecified (3) Nausea & vomiting: Status: Acute Category: Medical Code(s): R11.2 - Nausea with vomiting, unspecified Plan Patient is a 58-year-old female who presented to hospital due to generalized weakness lightheadedness vomiting. According the patient he has been having symptoms for the past 2 days. Since she has not been able to hold down food or liquids and decided to come to the hospital. Otherwise denied chest pain shortness of breath. She also mentions she has been having vomiting and she is not sure if she has not noticed any blood in her vomiting. Denies fevers chills diarrhea. On further evaluation patient was noticed to have lactic acidosis, hypokalemia anion gap and was admitted for further management Assessment and plan Hypokalemia, anion gap metabolic acidosis likely secondary to dehydration Lactic acidosis Start IV fluids with normal saline Monitor and replace electrolytes Advance diet as tolerated Monitor lactic acid DVT prophylaxis-heparin
[2023-12-03] MEDS: AMLODIPINE 5MG TABLET 5 MG PO (18:43)
[2023-12-03] MEDS: ATORVASTATIN 40MG TABLET 40 MG PO (18:43)
[2023-12-03] MEDS: clonazePAM 0.5MG TABLET 0.5 MG PO (20:03)
[2023-12-03] MEDS: SUCRALFATE 1GM TABLET 1 GM PO (20:03)
[2023-12-03] MEDS: MELATONIN 5MG TABLET 5 MG PO (20:04)
[2023-12-04] VITALS: BP 102/66; PULSE 80; RESP 18; TEMP 36.6; O2SAT 94
[2023-12-04] MEDS: ACETAMINOPHEN 325MG TAB 650 MG PO (03:00)
[2023-12-04 04:00] VITALS: BP 105/74; PULSE 97; RESP 17; TEMP 37.1; O2SAT 92; BMI 25.8
[2023-12-04] MEDS: HEPARIN SODIUM 5,000 UNIT/ML VIAL 5000 UNIT SQ (04:26)
--- NOTE | 2023-12-04 06:10 | PC.NURSE ---
Pt has continued to complain of headache throughout shift. She was medicated with tylenol X 2 doses and zofran X 1 dose. No vomiting during the past 12 hours. During rounds pt has appeared to be resting comfortably
[2023-12-04 06:39] LABS: Eosinophils # 0.1 K/mm3 (0.0-0.4); Lymphocytes # 1.6 K/mm3 (0.7-4.5); Red Cell Distribution Width 13.9 % (11.5-17.5)
[2023-12-04 06:41] LABS: Chloride 95 mmol/L (98-107); Sodium 131 mmol/L (136-145)
[2023-12-04 06:44] LABS: Blood Urea Nitrogen 15 mg/dl (7-17); Creatinine Clearance Estimated 79 mL/min (50-200); Estimated Glomerular Filt Rate 73 ml/min (>60); GFR (African American) 89 ML/MIN (>60)
[2023-12-04 06:45] LABS: Anion Gap 15.8 mEq/L (5-15); Calcium 8.6 mg/dl (8.4-10.2); Carbon Dioxide 23 mmol/L (22.0-30.0); Glucose 73 mg/dl (74-100)
[2023-12-04 07:22] LABS: Potassium 2.8 mmoL/L (3.5-5.1)
[2023-12-04 07:29] LABS: Basophils % 0.3 % (0.1-2.0); Lymphocytes % 29.1 % (10-50); Mean Corpuscular HGB Conc 31.2 g/dL (31.8-35.4); Mean Corpuscular Volume 92.7 fl (81-99); Mean Platelet Volume 9.3 fl (7.4-10.4); Monocytes # 0.4 K/mm3 (0.1-1.0); Monocytes % 7.1 % (1.7-9.3); Neutrophils # 3.4 K/mm3 (1.8-7.8); Neutrophils % 62.4 % (37.0-80.0); Platelet Count 223 K/mm3 (142-424); Red Blood Count 3.78 M/mm3 (4.20-5.40); White Blood Count 5.5 K/mm3 (4.8-10.8)
[2023-12-04 07:48] LABS: Hemoglobin 10.9 g/dL (12.2-16.2)
[2023-12-04 08:00] VITALS: BP 124/76; PULSE 99; RESP 18; TEMP 37.1; O2SAT 94
[2023-12-04] MEDS: 0.9 % SODIUM CHLORIDE 1000ML 1,000 ML 50 ML IV (09:45)
[2023-12-04] MEDS: ATORVASTATIN 40MG TABLET 40 MG PO (09:46)
[2023-12-04] MEDS: POTASSIUM CHLORIDE 20MEQ TAB 60 MEQ PO (09:46)
[2023-12-04] MEDS: PANTOPRAZOLE 40MG TABLET 40 MG PO (09:46)
[2023-12-04] MEDS: SUCRALFATE 1GM TABLET 1 GM PO (09:46)
[2023-12-04] MEDS: clonazePAM 0.5MG TABLET 0.5 MG PO (09:47)
[2023-12-04] MEDS: AMLODIPINE 5MG TABLET 5 MG PO (09:47)
[2023-12-04 12:00] VITALS: BP 122/82; PULSE 101; RESP 18; TEMP 37.1; O2SAT 100
--- NOTE | 2023-12-04 13:40 | EXP.DC.SUM ---
General Admission date:: 12/03/23 Discharge date: 12/04/23 HPI HPI HPI: Patient is a 58-year-old female who presented to hospital due to generalized weakness lightheadedness vomiting. According the patient he has been having symptoms for the past 2 days. Since she has not been able to hold down food or liquids and decided to come to the hospital. Otherwise denied chest pain shortness of breath. She also mentions she has been having vomiting and she is not sure if she has not noticed any blood in her vomiting. Denies fevers chills diarrhea. On further evaluation patient was noticed to have lactic acidosis, hypokalemia anion gap and was admitted for further management Hospital Course Hospital Course Hospital Course: Patient is a 58-year-old female who presented to hospital due to generalized weakness lightheadedness vomiting. According the patient he has been having symptoms for the past 2 days. Since she has not been able to hold down food or liquids and decided to come to the hospital. Otherwise denied chest pain shortness of breath. She also mentions she has been having vomiting and she is not sure if she has not noticed any blood in her vomiting. Denies fevers chills diarrhea. On further evaluation patient was noticed to have lactic acidosis, hypokalemia anion gap and was admitted for further management Patient was started on IV fluids, Electrolytes were replaced. Assessment and plan Hypokalemia, anion gap metabolic acidosis likely secondary to dehydration - improved Lactic acidosis - improved Patient mentions she has 14 days supply of potassium supplements, patient also counseled on alcohol cessation. Patient will be discharged in stable condition and counseled on f/u as OP with PCP On the date of discharge, the patient reported feeling stable. The patient was found not to be in any acute distress, and no new abnormalities on physical examination. Further, the patient expressed appropriate understanding of, and agreement with, the discharge recommendations, medications, and plan. Time spent 37 mins Exam Data for Last 24 hours Vital signs and Labs for Last 24 Hours: Temp Pulse Resp BP Pulse Ox O2 Del Method 98.7 F 101 H 18 122/82 100 Room Air 12/04/23 12:00 12/04/23 12:00 12/04/23 12:00 12/04/23 12:00 12/04/23 12:00 12/04/23 13:00 Laboratory Results - last 24 hr 12/03/23 15:15: Lactate 2.7 H, Troponin I < 0.01 12/03/23 17:47: Lactate 1.4 12/04/23 05:33: WBC 5.5 D, RBC 3.78 L, Hgb 10.9 L D, Hct 35.0 L, MCV 92.7, MCH 29.0, MCHC 31.2 L, RDW 13.9, Plt Count 223, MPV 9.3, Neut % (Auto) 62.4, Lymph % (Auto) 29.1, Howell % (Auto) 7.1, Eos % (Auto) 1.0, Baso % (Auto) 0.3, Neut # (Auto) 3.4, Lymph # (Auto) 1.6, Howell # (Auto) 0.4, Eos # (Auto) 0.1, Baso # (Auto) 0.0, Sodium 131 L, Potassium 2.8 L*, Chloride 95 L, Carbon Dioxide 23, Anion Gap 15.8 H, BUN 15, Creatinine 0.80 D, Estimated Creat Clear 79, Estimated GFR 73, Est GFR ( Amer) 89 D, Glucose 73 L, Calcium 8.6 I & O for Last 24 hours: Intake & Output 12/01/23 12/02/23 12/03/23 12/04/23 23:59 23:59 23:59 23:59 Intake Total 600 / 720 400 / 400 Output Total 0 / 0 100 / 100 Balance 600 / 720 300 / 300 Weight 64.002 kg 66.134 kg Constitutional Constitutional: no acute distress *Routine HEENT Exam Head: Present normocephalic Eye: Present EOMI and PERRL ENT: Present mucous membranes moist *Routine Neck Exam Neck: Present supple; Absent lymphadenopathy *Routine Respiratory Exam Respiratory: Present CTA bilaterally *Routine Cardiovascular Exam Cardiovascular: Present RRR *Routine Abdominal Exam Abdominal: Present soft and normoactive bowel sounds; Absent tenderness *Routine Extremities Exam Extremities: Absent cyanosis, clubbing or edema *Routine Skin Exam Skin: Present warm; Absent rash *Routine Neurological Exam Neurological: Present alert and oriented X3 Results Data Completed and Pending Labs on day of discharge: Labs from last 24 hours 12/04/23 12/03/23 12/03/23 05:33 17:47 15:15 WBC 5.5 D RBC 3.78 L Hgb 10.9 L D Hct 35.0 L MCV 92.7 MCH 29.0 MCHC 31.2 L RDW 13.9 Plt Count 223 MPV 9.3 Neut % (Auto) 62.4 Lymph % (Auto) 29.1 Howell % (Auto) 7.1 Eos % (Auto) 1.0 Baso % (Auto) 0.3 Neut # (Auto) 3.4 Lymph # (Auto) 1.6 Howell # (Auto) 0.4 Eos # (Auto) 0.1 Baso # (Auto) 0.0 Sodium 131 L Potassium 2.8 L* Chloride 95 L Carbon Dioxide 23 Anion Gap 15.8 H BUN 15 Creatinine 0.80 D Estimated Creat Clear 79 Estimated GFR 73 Est GFR ( Amer) 89 D Glucose 73 L Lactate 1.4 2.7 H Calcium 8.6 Troponin I < 0.01 DS: Diagnosis Discharge Diagnosis (1) Kidney dysfunction: Status: Acute Code(s): N28.9 - Disorder of kidney and ureter, unspecified (2) Acidosis, lactic: Status: Acute Code(s): E87.20 - Acidosis, unspecified (3) Nausea & vomiting: Status: Acute Code(s): R11.2 - Nausea with vomiting, unspecified Meds Home Medications and Allergies Home Medications Medication Instructions Recorded Confirmed Type clonazepam 0.5 mg tablet 0.5 mg PO BID 11/18/17 12/03/23 History atorvastatin 40 mg tablet 40 mg PO DAILY 09/29/23 12/03/23 History hydrochlorothiazide 12.5 mg tablet 12.5 mg PO DAILY 09/29/23 12/03/23 History pantoprazole 40 mg tablet,delayed 40 mg PO DAILY 30 days #30 tabs 10/01/23 12/03/23 Rx release amlodipine 5 mg tablet 5 mg PO DAILY 12/03/23 12/03/23 History potassium chloride 10 mEq 10 meq PO DAILY 12/03/23 12/03/23 History capsule,extended release sucralfate 1 gram tablet 1 g PO BID 12/03/23 12/03/23 History New Prescriptions to Start Prescriptions: Allergies Allergy/AdvReac Type Severity Reaction Status Date / Time Beta-Blockers Allergy Verified 06/18/22 09:53 (Beta-Adrenergic Bloc lisinopril Allergy Verified 06/18/22 09:53 Discharge Plan Disposition Patient Disposition: Home, Self-Care Condition: Good Follow up Plan Follow up with: Irasema Puga, JOEY [Primary Care Provider] - 12/10/23 11:30 am Prescriptions/Medication Reconciliation: Continued potassium chloride 10 mEq capsule, extended release 10 meq PO DAILY Patient Comments: Take 1 capsule every day by oral route for 14 days. amlodipine 5 mg tablet 5 mg PO DAILY Patient Comments: TAKE ONE TABLET BY MOUTH DAILY sucralfate 1 gram tablet 1 g PO BID clonazepam 0.5 MG tablet 0.5 mg PO BID atorvastatin 40 mg tablet 40 mg PO DAILY Patient Comments: TAKE 1 TABLET 1 TIME EACH DAY hydrochlorothiazide 12.5 mg tablet 12.5 mg PO DAILY Patient Comments: TAKE 1 TABLET 1 TIME EACH DAY pantoprazole 40 mg tablet,delayed release (DR/EC) 40 mg PO DAILY 30 Days Qty: 30 0RF Problem Reconciliation Problems Reviewed?: Yes Patient Discharge Instructions ACTIVITY: Ambulate as tolerated DIET: continue same diet Patient Instructions: DI for Nausea -- Adult, DI for Vomiting -- Adult Providers Primary Care Provider: Irasema Puga Admit Provider: Giselle Rodgers Attending Provider: Giselle Rodgers
--- NOTE | 2023-12-05 13:31 | CARE MANAGER ---
Spoke with patient related to hospital discharge. She states that she is feeling better. She denies questions or concerns and is aware of follow up appointments.
== END 2023-12-04 13:50 | disposition home or self-care (01) ==
LOC: ER 12:14 → 2ND 12:38
PROVIDERS: Admitting Provider Internal Medicine; Emergency Provider Emergency Medicine; PCP Nurse Practitioner; Visit Provider Internal Medicine
DX: E87.20 Acidosis, unspecified (principal); N28.9 Disorder of kidney and ureter, unspecified; F17.210 Nicotine dependence, cigarettes, uncomplicated; E87.6 Hypokalemia; E86.0 Dehydration; R11.2 Nausea with vomiting, unspecified; E78.5 Hyperlipidemia, unspecified; F41.9 Anxiety disorder, unspecified
CPT/HCPCS: 36415; 71275; 74177; 80048; 80053; 81001; 82803; 83605; 83690; 84484; 85025; 85610; 93005; 99285; G0378; J0131; J1644; J2270; J2405; J7120; Q9967

== ENCOUNTER 2025-01-18 13:34 | Outpatient (CLI) | payer OTHER, SELFPAY ==
--- OUTSIDE RECORDS SUMMARY | 2024-01-09 07:00 | XMS_ITS ---
Author Organization [facility] Address [address] [place] [address] Care Team Providers Care Benefits Director Name Role Phone Irasema Casillas Primary Care Provider Nando Manisha Robledo [phone] Allergies Allergen (clinical drug ingredient) Drug/Non Drug Allergy documented on EMR Reaction Allergy Type Onset Date Status lisinopril Lisinopril Unknown Drug Allergy Activ e REASON FOR VISIT Vivitrol Inj Medications Medication SIG (Take, Route, Frequency, Duration) Notes Start Date End Date Status Anoro Ellipta 62.5-25 MCG/ACT 1 puff Inh alation Once a day Active amLODIPine Besylate 5 MG 1 tablet Orally Once a day Active Sucralfate 1 GM 1 tablet on an empty stomach Orally Twice a day Active Potassium Chloride Lorie ER 1 0 MEQ 1 tablet with food Orally once a day Active hydroCHLOROthiazide 12.5 MG 1 tablet in the morning Orally Once a day Active Pantoprazole Sodium 40 MG 1 tablet Orall y Once a day Active clonazePAM 0.5 MG 1 tablet Orally twic e a day Active Carvedilol 25 MG 1 tablet with food Orally Twice a day Active Atorvastatin Calcium 40 MG 1 tablet Oral ly Once a day Active Social History Tobacco Use: Social History Observation Description Date Details (start date - stop date) Current Smoker NA - NA Tobacco Control (Standard) Question Answer Notes Tobacco use: Current smoker How often do you smoke cigarettes? Every day How many cigarettes a day do you smoke? 31 or mo re Section Notes: Piercings High school education/GED Encounters Encounter Location Date Provider Diagnosis [address] [address] 01/09/2024 Manisha Collier Plan Of Treatment No Information Progress Notes * Arminda BARBOURDOB: 5 (59 yo F)Acc No.[id number]:01/09/2024 New Patient Patient: Arminda SÁNCHEZ Provider: Karen Collier APRN :1965 A ge:58 Y S ex:Female Date:01/09/2024 Address:[address] [place] [address] [place], [place], [id number] Pcp:Irasema Casillas Subjective: * Chief Complaints: * 1 . Vivitrol Inj. * Medical History: C OPD, GERD, Hypertension, Anxiety, Depression, Hypokalemia\. * Surgical History: h ysterectomy , tubal . * Hospitalization/Major Diagno stic Procedure: D enies Past Hospitalization. * Family History: DM-siblings. * Social History: T obacco Use: T obacco Control (Standard) T obacco use: C urrent smoker, H ow often do you smoke cigarettes? E very day, H ow many cigarettes a day do you smoke? 3 1 or more. D rugs/Alcohol: D rugs H ave you used drugs other than those for medical reasons in the past 12 months??No. D o you drink alcohol?: Yes, admits to drinking 1 pint of whiskey dialy beginning at age 19 with date of last use 12/22/23. M iscellaneous: Yolande kidd: 2. P iercings High school education/GED. * Medications: T aking Carvedilol 25 MG Tablet 1 tablet with food Orally Twice a day , Taking Pantoprazole Sodium 40 MG Tablet Delayed Release 1 tablet Orally Once a day , Taking clonazePAM 0.5 MG Tablet 1 tablet Orally twice a day , Taking Atorvastatin Calcium 40 MG Tablet 1 tablet Orally Once a day , Taking Sucralfate 1 GM Tablet 1 tablet on an empty stomach Orally Twice a day , Taking Potassium Chloride Lorie ER 10 MEQ Tablet Extended Release 1 tablet with food Orally once a day , Taking hydroCHLOROthiazide 12.5 MG Tablet 1 tablet in the morning Orally Once a day , Taking Anoro Ellipta 62.5-25 MCG/ACT Aerosol Powder Breath Activated 1 puff Inhalation Once a day , Taking amLODIPine Besylate 5 MG Tablet 1 tablet Orally Once a day , Medication List reviewed and reconciled with the patient * Allergies: L isinopril: Allergy. Objective: * Vitals: Assessment: Plan: * Treatment: * Images: Billing Information: * Visit Code: * Procedure Codes: * Electronic signature of Luis Collier APRN on 01/18/2025 at 01:38 PM EDT Sign off status: Pending Visit Status: C ANC (Cancelled) * Provider: Karen Collier APRN Date: 01/09/2024 Generated for Beatriz echevarria/Ravinder/Marcela on: 01/18/2025 01:38 PM EDT
--- NOTE | 2025-01-18 13:37 | MM_ITS ---
PROCEDURE INFORMATION: Exam: MG Bilateral Screening 3D Mammography Exam date and time: 01/18/2025 1:48 PM Age: 59 years old Clinical indication: Screening. No family history of breast cancer. TECHNIQUE: Imaging protocol: Bilateral Screening tomosynthesis and 2D mammography including computer-aided detection (CAD) when performed. COMPARISON: MG MM DIG SCREENING MAMM BI W/CAD 05/15/2019 10:41 AM FINDINGS: MAMMOGRAPHY: Breast composition: There are scattered areas of fibroglandular density. Mass: No suspicious mass. Architectural distortion: None. Calcifications: No suspicious calcifications. Asymmetric density: None. Skin thickening: None. Axillary adenopathy: None. IMPRESSION: No mammographic evidence of malignancy. Annual screening is recommended unless otherwise clinically indicated. ASSESSMENT: BI-RADS Category 1: Negative.
--- OUTSIDE RECORDS SUMMARY | 2025-01-18 13:38 | XMS_ITS | Encounter Summary ---
Author Organization [employer] ([place], [place], [place], [place]) Address [address] [place] [address] Care Team Providers Care Bi Tester Name Role Phone Unavailable Primary Care Provider Unavailabl e Encounter Details Date Type Department Care Team (Late st Contact Info) Description 02/14/2019 Transcribed Document [facility] [place] [facility] [place] [address] ProviderAmari MD [address] [place] [id number] Social History Tobacco Use Types Packs/Day Years Used Date Smoking Tobacco: Never Assessed Comments Unknown Sex and Gender Information Value Date Recorded Sex Assigned at Female 12/05/2021 8:35 PM CDT Legal Sex Female 8:35 PM CDT Gender Identity Female 12/05/2021 8:35 PM CDT Sexual Orientation Not on file documented as of this encounter Miscellaneous Notes * [employer]ner Conversion Note - Historical ProviderMD - 02/14/2019 7:18 PM CDT ED Discharge Entered On: 02/14/2019 19:18 EDT Performed On: 02/14/2019 19:18 EDT by Pam Arroyo RN Discharge Process Patient Disposition : Discharge Personal Belongings With Patient : Yes Patient Education Completed : Yes Teaching Evaluation : Verbalizes understanding IV Discontinued : Not applicable Nursing Documentation Completed : Yes Pam Arroyo RN - 02/14/2019 19:18 EDT ED Discharge Discharge To : Home with ambulatory/outpatient follow-up Mode Of Departure : Ambulatory Accompanied By : Spouse Discharge Instructions Reviewed With, Opportunity For Questions Given : Patient Prescriptions Given to Patient : No Pam Arroyo RN - 02/14/2019 19:18 EDT documented in this encounter Plan of Treatment Not on file documented as of this encounter Visit Diagnoses Not on filedocumented in this encounter
--- OUTSIDE RECORDS SUMMARY | 2025-01-18 13:38 | XMS_ITS | Clinical Summary ---
Author Organization [facility] Address [address] [place] [address] Care Team Providers Care School Leader Name Role Phone Irasema Puga APRN Primary Care Provider Social History Tobacco Use Types Packs/Day Years Used Date Smoking Tobacco: Never Assessed Comments Unknown Sex and Gender Information Value Date Recorded Sex Assigned at Not on file Legal Sex Female 8:55 PM EDT Gender Identity Not on file Sexual Orientation Not on file Plan of Treatment Upcoming Encounters Date Type Department Care Team (Late st Contact Info) Description 02/04/2025 1:40 PM EDT Office Visit [facility] Endocrinology [address] [place] [id number] Anahi Martinez MD [address] [place] [address] Health Maintenance Due Date Last Done Comments [facility]-Depression Screening 1965 [facility]-HIV Screening 1965 [facility]-Hepatitis C Screening 1965 [facility]-/Child/Adol SDOH Screenings 1965 [facility]- SDOH Screenings 1982 [facility]-Adult SDOH Screenings 1982 [facility]-DTaP,Tdap,and Td Vaccines (1 - Tdap) 1983 [facility]-Pap Smear 1985 [facility]-Cervical Cancer Screening 1994 [facility]-HPV/Cotest 1994 CT Colonography 2009 Colonoscopy 2009 FIT-DNA 2009 FIT 2009 FOBT 2009 Sigmoidoscopy 2009 [facility]-Colorectal Cancer Screening 2009 [facility]-Breast Cancer Screening 2014 [facility]-Pneumococcal Vaccine: 50+ Years (1 of 1 - PCV) 2014 [facility]-Zoster Vaccines (1 of 2) 2014 [facility]-LSDGY-89 Vaccine (3 - season) 2024 09/08/2020, 08/11/2020 [facility]-Influenza Vaccine (#1) 02/08/202503/26, 04/12/2022, 07/03/2021, Additional history exists [facility]-RSV Vaccine: 60+ Years or (1 - 1-dose 75+ series) 2039 HPV Vaccines Aged Out No longer eligi ble based on patient's age to complete this topic [facility]-HIB Vaccines Aged Out No longer e ligible based on patient's age to complete this topic [facility]-Hepatitis A Vaccines Aged Out No longer eligible based on patient's age to complete this topic [facility]-IPV Vaccines Aged Out No longer e ligible based on patient's age to complete this topic [facility]-Rotavirus Vaccines Aged Out No lo nger eligible based on patient's age to complete this topic Insurance MEDICAID Care Teams School Leader Relationship Specialty Start Date End Date Irasema Puga APRN [address] [place] [address] PCP - General 11/19/24
--- OUTSIDE RECORDS SUMMARY | 2025-01-18 13:38 | XMS_ITS | Encounter Summary ---
Author Organization [employer] ([place], [place], [place], [place]) Address [address] [place] [address] Care Team Providers Care Grant Coordinator Name Role Phone Unavailable Primary Care Provider Unavailabl e Encounter Details Date Type Department Care Team (Late st Contact Info) Description 02/14/2019 Transcribed Document [facility] [place] [facility] [place] [address] ProviderAmari MD [facility] [place] [address] Social History Tobacco Use Types Packs/Day Years [...] Conversion Note - Historical ProviderMD - 02/14/2019 6:24 PM CDT Electronically signed by Karthikeyan, [facility] Conversion Attendant [employer] at 09/24/2022 5:46 PM CDT documented in this encounter Plan of Treatment Not on file documented as of this encounter Visit Diagnoses Not on filedocumented in this encounter
--- OUTSIDE RECORDS SUMMARY | 2025-01-18 13:38 | XMS_ITS | Encounter Summary ---
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 Name Role Phone Unavailable Primary Care Provider Unavailabl e Encounter Details Date Type Department Care Team (Late st Contact Info) Description 02/14/2019 Transcribed Document [facility] [place] Family Medicine [place] [address] ProviderAmari MD [address] [place] [id number] Social History Tobacco Use Types Packs/Day Years Used Date Smoking Tobacco: Never Assessed Comments Unknown Sex and Gender Information Value Date Recorded Sex Assigned at Female 12/05/2021 8:35 PM CDT Legal Sex Female 8:35 PM CDT Gender Identity Female 12/05/2021 8:35 PM CDT Sexual Orientation Not on file documented as of this encounter Miscellaneous Notes * Cerner Conversion Note - Amari ProviderMD - 02/14/2019 6:29 PM CDT [facility] [place] [address] LUISA BARBOUR :1965 Visit Time:02/14/2019 Your Visit Summary Your Care Team Admitting Physician - SHAMIKA SHELDON MARK, MD Attending Physician - CLARITA SILVER MD Primary Care Physician - LEO MARTINEZ NP-[facility] Referring Physician - CLARITA SILVER MD Your Diagnosis Acute alcoholism Alcohol abuse Medical Information You may obtain a copy of your Emergency Department visit from Medical Records by calling the hospital phone number listed above and asking to be directed to the Medical Records Department. If you had special tests, such as EKG???s or X-rays, the interpretation of your tests given to you by the Emergency Department Physician is a preliminary report. Some fractures and illnesses fail to show up on preliminary tests. These will be reviewed again and we will call you if there are any new suggestions. If your symptoms continue notify your physician. After you leave, you should follow the instructions provided. What to do next Follow-Up Appointments Follow Up with LEO MARTINEZ When Within 2 to 3 days Comments return to ED if symptoms worsen Allergies lisinopril (LIP SWELL) Immunizations This Visit No Immunizations Found Medications The home medications listed are only as accurate as the information you provided. Please continue taking all of your medications prescribed by your Primary Care Provider unless specifically told to change or discontinue the medication. Please direct any questions regarding your home medications to your Primary Care Provider. Take your medications faithfully. Do NOT skip medication. Do NOT stop taking medications without the direction of a physician. Carry a list of your medications with you at all times, and take this medication list with you to your first follow up visit. Report any side effects. Avoid herbal remedies unless discussed with your physician. As part of your treatment plan, your physician may have prescribed a limited course of a controlled substance. This medication may be given to help people with moderate or severe pain or for other medical conditions, but there are risks involved with treatment. Common side effects may include nausea, constipation, drowsiness, sweating, itching, dry mouth, and rash. More serious side effects may include cognitive and motor impairment, like problems with thinking, concentrating, alertness, and movement (e.g. slowed reflexes), and driving and operating heavy machinery can be dangerous. It is important for you to talk to your physician if you have these side effects or questions. These controlled substances can produce physical dependence and be habit-forming if taken for an extended period of time, which means that the body has gotten used to them and may experience withdrawal symptoms if they are abruptly stopped. Withdrawal symptoms can include runny nose, sweating, goose bumps, diarrhea, abdominal cramping, rapid heartbeat, difficulty sleeping, and nervousness. Please dispose of unused and medications per pharmacy guidance. Test Results Laboratory or Other Results This Visit (last charted value for your 02/14/2019 visit) No Laboratory or Other Results This Visit Education Materials Alcohol Use Disorder Alcohol use disorder is when your drinking disrupts your daily life. When you have this condition, you drink too much alcohol and you cannot control your drinking. Alcohol use disorder can cause serious problems with your physical health. It can affect your brain, heart, liver, pancreas, immune system, stomach, and intestines. Alcohol use disorder can increase your risk for certain cancers and cause problems with your mental health, such as depression, anxiety, psychosis, delirium, and dementia. People with this disorder risk hurting themselves and others. What are the causes? This condition is caused by drinking too much alcohol over time. It is not caused by drinking too much alcohol only one or two times. Some people with this condition drink alcohol to cope with or escape from negative life events. Others drink to relieve pain or symptoms of mental illness. What increases the risk? You are more likely to develop this condition if: ??? You have a family history of alcohol use disorder. ??? Your culture encourages drinking to the point of intoxication, or makes alcohol easy to get. ??? You had a mood or conduct disorder in childhood. ??? You have been a victim of abuse. ??? You are an adolescent and: ? You have poor grades or difficulties in school. ? Your caregivers do not talk to you about saying no to alcohol, or supervise your activities. ? You are impulsive or you have trouble with self-control. What are the signs or symptoms? Symptoms of this condition include: ??? Drinking more than you want to. ??? Drinking for longer than you want to. ??? Trying several times to drink less or to control your drinking. ??? Spending a lot of time getting alcohol, drinking, or recovering from drinking. ??? Craving alcohol. ??? Having problems at work, at school, or at home due to drinking. ??? Having problems in relationships due to drinking. ??? Drinking when it is dangerous to drink, such as before driving a car. ??? Continuing to drink even though you know you might have a physical or mental problem related to drinking. ??? Needing more and more alcohol to get the same effect you want from the alcohol (building up tolerance). ??? Having symptoms of withdrawal when you stop drinking. Symptoms of withdrawal include: ? Fatigue. ? Nightmares. ? Trouble sleeping. ? Depression. ? Anxiety. ? Fever. ? Seizures. ? Severe confusion. ? Feeling or seeing things that are not there (hallucinations). ? Tremors. ? Rapid heart rate. ? Rapid breathing. ? High blood pressure. ??? Drinking to avoid symptoms of withdrawal. How is this diagnosed? This condition is diagnosed with an assessment. Your health care provider may start the assessment by asking three or four questions about your drinking. Your health care provider may perform a physical exam or do lab tests to see if you have physical problems resulting from alcohol use. She or he may refer you to a mental health professional for evaluation. How is this treated? Some people with alcohol use disorder are able to reduce their alcohol use to low-risk levels. Others need to completely quit drinking alcohol. When necessary, mental health professionals with specialized training in substance use treatment can help. Your health care provider can help you decide how severe your alcohol use disorder is and what type of treatment you need. The following forms of treatment are available: ??? Detoxification. Detoxification involves quitting drinking and using prescription medicines within the first week to help lessen withdrawal symptoms. This treatment is important for people who have had withdrawal symptoms before and for heavy drinkers who are likely to have withdrawal symptoms. Alcohol withdrawal can be dangerous, and in severe cases, it can cause . Detoxification may be provided in a home, community, or primary care setting, or in a hospital or substance use treatment facility. ??? Counseling. This treatment is also called talk therapy. It is provided by substance use treatment counselors. A counselor can address the reasons you use alcohol and suggest ways to keep you from drinking again or to prevent problem drinking. The goals of talk therapy are to: ? Find healthy activities and ways for you to cope with stress. ? Identify and avoid the things that trigger your alcohol use. ? Help you learn how to handle cravings. ??? Medicines. Medicines can help treat alcohol use disorder by: ? Decreasing alcohol cravings. ? Decreasing the positive feeling you have when you drink alcohol. ? Causing an uncomfortable physical reaction when you drink alcohol (aversion therapy). ??? Support groups. Support groups are led by people who have quit drinking. They provide emotional support, advice, and guidance. These forms of treatment are often combined. Some people with this condition benefit from a combination of treatments provided by specialized substance use treatment centers. Follow these instructions at home: ??? Take gafh-imm-caniojf and prescription medicines only as told by your health care provider. ??? Check with your health care provider before starting any new medicines. ??? Ask friends and family members not to offer you alcohol. ??? Avoid situations where alcohol is served, including gatherings where others are drinking alcohol. ??? Create a plan for what to do when you are tempted to use alcohol. ??? Find hobbies or activities that you enjoy that do not include alcohol. ??? Keep all follow-up visits as told by your health care provider. This is important. How is this prevented? If you drink, limit alcohol intake to no more than 1 drink a day for non women and 2 drinks a day for men. One drink equals 12 oz of beer, 5 oz of wine, or 1?? oz of hard liquor. ??? If you have a mental health condition, get treatment and support. ??? Do not give alcohol to adolescents. ??? If you are an adolescent: ? Do not drink alcohol. ? Do not be afraid to say no if someone offers you alcohol. Speak up about why you do not want to drink. You can be a positive role model for your friends and set a good example for those around you by not drinking alcohol. ? If your friends drink, spend time with others who do not drink alcohol. Make new friends who do not use alcohol. ? Find healthy ways to manage stress and emotions, such as meditation or deep breathing, exercise, spending time in nature, listening to music, or talking with a trusted friend or family member. Contact a health care provider if: ??? You are not able to take your medicines as told. ??? Your symptoms get worse. ??? You return to drinking alcohol (relapse) and your symptoms get worse. Get help right away if: ??? You have thoughts about hurting yourself or others. If you ever feel like you may hurt yourself or others, or have thoughts about taking your own life, get help right away. You can go to your nearest emergency department or call: ??? Your local emergency services (911 in the [place] ??? A suicide crisis helpline, such as the National Suicide Prevention Lifeline at . This is open 24 hours a day. Summary ??? Alcohol use disorder is when your drinking disrupts your daily life. When you have this condition, you drink too much alcohol and you cannot control your drinking. ??? Treatment may include detoxification, counseling, medicine, and support groups. ??? Ask friends and family members not to offer you alcohol. Avoid situations where alcohol is served. ??? Get help right away if you have thoughts about hurting yourself or others. This information is not intended to replace advice given to you by your health care provider. Make sure you discuss any questions you have with your health care provider. Document Released: 07/04/2005 Document Revised: 02/21/2017 Document Reviewed: 02/21/2017 [employer] Patient Education ?? 2019 [employer]. Emergency Awareness and Preventative Care STROKE is an EMERGENCY Every Minute Counts Act FAST and Check for these signs: FACE Does the face look uneven? ARM Does one arm drift down? SPEECH Does their speech sound strange? TIME Call at any sign of stroke Stroke Risk Factors Atrial Fibrillation (irregular heartbeat) Diabetes Family history of stroke Heart Disease Heavy alcohol use High Blood Pressure High Cholesterol Physical inactivity and obesity Smoking Cigarette Smoking The facts are clear, cigarette smoking will shorten your life. Smoking can cause many illnesses along the way. As a healthcare provider, we recommend that you stop smoking. Assistance with quitting is available by contacting 9-060-UMMVWysada.comNOW. This is a free resource providing counseling, support, and referral. Or you may contact your personal physician. National Suicide Prevention Lifeline: The National Suicide Prevention Lifeline is a national network of local crisis centers that provides free and confidential emotional support to people in suicidal crisis or emotional distress 24 hours a day, 7 days a week. Don't Wait! Stop a Heart Attack Before it Starts What is a heart attack? A heart attack is damage or to a part of the heart from severely decreased or lack of blood flow to the heart. Over time, arteries can become narrow from the buildup of fat and cholesterol, which is called plaque. The plaque can rupture causing a blood clot to form. When the blood clot forms, the artery can become severely narrowed or completely blocked, causing a heart attack. Heart attack is the leading cause of in the [place]. 85% of muscle damage occurs within the first 2 hours. Delay in the recognition of heart attack symptoms increases the chances of . Know the early symptoms of a heart attack: Nausea Feeling of fullness in chest Jaw Pain Pain that travels down one or both arms Fatigue/being tired Anxiety Back Pain Chest pressure, squeezing, or discomfort Shortness of breath Sweating, or a cold sweat Feeling of impending doom There are unusual signs of a heart attack, too! Women, the elderly, and diabetics may present with atypical symptoms: Fainting/dizziness Weakness Confusion Risk Factors for a Heart Attack Some heart disease risk factors, such as age and family history, cannot be changed. Others, like smoking and lack of exercise, can be changed. Smoking High Cholesterol High Blood Pressure Family History Obesity Age Gender (Males are at higher risk) Lack of Exercise Diabetes Diet Stress Excessive Alcohol Intake If you or someone you know is experiencing the signs and symptoms of a heart attack, DON???T DELAY. Call immediately and seek help. If someone collapses, perform CPR! Do not attempt to drive if you are having symptoms of heart attack. Hands-Only CPR Why Hands-Only CPR? Hands-Only CPR has been shown to be as effective as conventional CPR for cardiac arrests that occur outside of a hospital. Survival depends on immediately receiving CPR from someone nearby. How do you perform Hands-Only CPR? There are two easy steps: Call if you see a teen or adult collapse Push hard and fast in the center of the chest at a beat of 100 beats per minute. Save a life! 4 WAYS TO GET AHEAD OF SEPSIS SEPSIS is a MEDICAL EMERGENCY. Time matters! Infections put you and your family at risk for a life-threatening condition called sepsis. Sepsis is the body's extreme response to an infection. It is life-threatening, and without timely treatment, sepsis can rapidly lead to tissue damage, organ failure, and . Sepsis happens when an infection you already have-in your skin, lungs, urinary tract or somewhere else-triggers a chain reaction throughout your body. 1 PREVENT INFECTIONS Take good care of chronic conditions. Talk to your doctor about getting the recommended vaccines. 2 PRACTICE GOOD HYGIENE Wash your hands frequently. Keep cuts or open sores clean and covered until they are healed. 3 KNOW THE SYMPTOMS Confusion or disorientation Shortness of breath High heart rate Fever, shivering, or feeling very cold Extreme pain or discomfort Clammy or sweaty skin 4 ACT FAST Get medical care IMMEDIATELY if you suspect sepsis or if you have an infection that is not getting better or is getting worse. To learn more about sepsis and how to prevent infections, visit www.cdc.gov/sepsis. The examination and treatment you have received in the Emergency Department has been done to provide an appropriate evaluation and stabilizing treatment on an emergency basis only. Given the limited resources, it is not meant to be a substitute for complete medical care. The follow-up doctor you named will receive a copy of your records and all test reports. IT IS IMPORTANT THAT YOU SCHEDULE A FOLLOW-UP APPOINTMENT AND ARE RE-EVALUATED. You should report any new complaints, symptoms, or remaining problems at that time. IT IS IMPOSSIBLE FOR THE EMERGENCY DEPARTMENT TO RECOGNIZE AND TREAT ALL ELEMENTS OF INJURY OR ILLNESS IN A SINGLE VISIT. If you have been referred to a specialist physician, it means that we believe you may have a condition that requires the expertise of a specialist. These physicians work in partnership with the hospital and have agreed to see referred patients in their office for further evaluation. KEEP IN MIND THAT THE SPECIALIST HAS HIS/HER OWN OFFICE POLICIES WHICH MAY REQUIRE PROPER INSURANCE OR PAYMENT UP FRONT BEFORE THE SPECIALIST WILL SEE YOU. It is your responsibility to call the specialist physician to make an appointment. We do not have the ability to refer patients to specialists/physicians that work with specific insurance companies. Please be advised that all financial charges or billing practices are determined by that practice, not the hospital. If your insurance company requires that you see a specialist from their approved list, it is your responsibility to contact your insurance company to make those arrangements. It is also your responsibility to follow any other requirements of your insurance company necessary to obtain coverage for claims submitted. We will bill your insurance; however, you are responsible today for any co-pay amounts. You will receive a separate bill for any services you may have received including: emergency, radiology, or pathology physicians. Patient Name:LUISA BARBOUR I have received this information and was given the opportunity to ask questions. 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 Date: documented in this encounter Plan of Treatment Not on file documented as of this encounter Visit Diagnoses Not on filedocumented in this encounter
--- OUTSIDE RECORDS SUMMARY | 2025-01-18 13:38 | XMS_ITS | Encounter Summary ---
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 Name Role Phone Unavailable Primary Care Provider Unavailabl e Encounter Details Date Type Department Care Team (Late st Contact Info) Description 02/14/2019 Transcribed Document [facility] [place] Family Medicine [facility] [place] [address] ProviderAmari MD [address] [place] [address] Social History Tobacco Use Types Packs/Day [...] Conversion Note - Amari ProviderMD - 02/14/2019 5:30 PM CDT ED Triage Entered On: 02/14/2019 17:40 EDT Performed On: 02/14/2019 17:35 EDT by FERNANDO HADLEY RN ED Triage Across the Room Triage Date/Time : 02/14/2019 17:35 EDT Chief Complaint : pt seeking medical clearance for etoh detox FERNANDO HADLEY RN - 02/14/2019 17:35 EDT DCP GENERIC CODE Tracking Acuity : 3 - Urgent Tracking Group : [facility] ED FERNANDO HADLEY RN - 02/14/2019 17:35 EDT Mode of Arrival : Ambulatory Transported to ED by : Private vehicle To Room Via : Ambulate Accompanied By : Daughter ED Vital Signs : Document Height & Weight : Document ED Allergies : Document ED Reason for Visit : Document FERNANDO HADLEY RN - 02/14/2019 17:35 EDT Infectious Disease History Infectious Disease History : Chicken pox/Shingles, Human papilloma virus (HPV), Influenza, Mumps Fever/Chills Last 48 Hours : No Travel To Regions with Travel Advisories : No Travel Outside [place] Within Last 30 Days : No Contact With Traveler to Advisory Region : No Tuberculosis Symptoms : None FERNANDO HADLEY RN - 02/14/2019 17:35 EDT Vital Signs ED Temperature Source : Oral Temperature Mode : Fahrenheit Temperature, Fahrenheit : 98.4 Deg F Clinical Temperature, C : 36.9 Deg C Oxygen Therapy Mode : Room air Peripheral Pulse Rate : 106 bpm (HI) Respiratory Rate : 17 Breaths/Min Systolic Blood Pressure : 130 mmHg Diastolic Blood Pressure : 76 mmHg Oxygen Saturation : 95 % FERNANDO HADLEY RN - 02/14/2019 17:35 EDT Allergy (As Of: 02/14/2019 17:40:13 EDT) Allergies (Active) lisinopril Estimated Onset Date: Unspecified ; Reactions: LIP SWELL ; Created By: FERNANDO HADLEY RN; Reaction Status: Active ; Category: Drug ; Substance: lisinopril ; Type: Allergy ; Updated By: FERNANDO HADLEY RN; Reviewed Date: 02/14/2019 17:38 EDT Diagnosis Control ED (As Of: 02/14/2019 17:40:13 EDT) Problems(Active) Diabetes mellitus (SNOMED CT :526052440 ) Name of Problem: Diabetes mellitus ; Recorder: FERNANDO HADLEY RN; Confirmation: Confirmed ; Classification: Medical ; Code: [id number] ; Contributor System: rollApp ; Last Updated: 02/14/2019 17:38 EDT ; Life Cycle Date: 02/14/2019 ; Life Cycle Status: Active ; Vocabulary: SNOMED CT Emphysema lung (SNOMED CT :221051763 ) Name of Problem: Emphysema lung ; Recorder: FERNANDO HADLEY RN; Confirmation: Confirmed ; Classification: Medical ; Code: [id number] ; Contributor System: Art SumoChart ; Last Updated: 02/14/2019 17:38 EDT ; Life Cycle Date: 02/14/2019 ; Life Cycle Status: Active ; Vocabulary: SNOMED CT Diagnoses(Active) Acute alcoholism Date: 02/14/2019 ; Diagnosis Type: Reason For Visit ; Confirmation: Complaint of ; Clinical Dx: Acute alcoholism ; Classification: Medical ; Clinical Service: Emergency medicine ; Code: PNED ; Probability: 0 ; Diagnosis Code: [id number] ED Height and Weight Height Source : Stated Height Entry Format : Bivins Height, Feet : 5 ft(Converted to: 152 cm, 60 Inch) Height, Inches : 3 Inch(Converted to: 0 ft 3 Inch, 7.62 cm) Clinical Height : 160.02 cm Weight Source, ED : Standing scale Weight Entry Format : Bivins Weight, Pounds : 152 lb Clinical Dosing Weight : 69.09 kg Body Surface Area (BSA) : 1.72 m2 Body Mass Index : 27 kg/m2 (HI) [place] Body Weight (IBW) : 52.02 kg EFRNANDO HADLEY RN - 02/14/2019 17:35 EDT documented in this encounter Plan of Treatment Not on file documented as of this encounter Visit Diagnoses Not on filedocumented in this encounter
--- OUTSIDE RECORDS SUMMARY | 2025-01-18 13:38 | XMS_ITS | Patient Health Record ---
Author Organization [facility] Address [address] [facility] JO[place] Narayanan [address] Care Team Providers Care Systems Engineering Manager Name Role Phone Irasema Casillas Primary Care Provider [phone] Allergies Allergen (clinical drug ingredient) Drug/Non Drug Allergy documented on EMR Reaction Allergy Type Onset Date Status lisinopril Lisinopril Unknown Drug Allergy Activ e Reason For Referral No Information Medications Medication SIG (Take, Route, Frequency, Duration) Notes Start Date End Date Status Pantoprazole Sodium 40 MG 1 tablet Orall y Once a day Active clonazePAM 0.5 MG 1 tablet Orally twic e a day Active Carvedilol 25 MG 1 tablet with food Orally Twice a day Active Anoro Ellipta 62.5-25 MCG/ACT 1 puff Inh alation Once a day Active amLODIPine Besylate 5 MG 1 tablet Orally Once a day Active Atorvastatin Calcium 40 MG 1 tablet Oral ly Once a day Active Sucralfate 1 GM 1 tablet on an empty stomach Orally Twice a day Active Potassium Chloride Lorie ER 1 0 MEQ 1 tablet with food Orally once a day Active hydroCHLOROthiazide 12.5 MG 1 tablet in the morning Orally Once a day Active Social History Tobacco Use: Social History Observation Description Date Details (start date - stop date) Current Smoker NA - NA Tobacco Control (Standard) Question Answer Notes Tobacco use: Current smoker How often do you smoke cigarettes? Every day How many cigarettes a day do you smoke? 31 or mo re Section Notes: Piercings High school education/GED Plan Of Treatment No Information Insurance Providers Payer Name Payer Address Payer Phone Subscriber Number Group Number Insured Name Patient Relationship to Insured Coverage Start Date Coverage End Date [employer] [address] [place] [id number] [phone] [id number] Arminda Barbour Self - patient is the insured 4 Medical (General) History Medical History History ICD Code COPD GERD Hypertension Anxiety Depression Hypokalemia\ Surgical History Surgery Date(Month/Year) hysterectomy tubal
--- OUTSIDE RECORDS SUMMARY | 2025-01-18 13:38 | XMS_ITS | Encounter Summary ---
Author Organization [employer] ([place], [place], [place], [place]) Address [address] [place] [address] Care Team Providers Care Chief Nurse Name Role Phone Unavailable Primary Care Provider Unavailabl e Encounter Details Date Type Department Care Team (Late st Contact Info) Description 02/14/2019 Transcribed Document [facility] [place] Medicine [facility] [place] [address] ProviderAmari MD [address] [place] [address] Social History Tobacco Use Types Packs/Day [...] Conversion Note - Historical ProviderMD - 02/14/2019 6:23 PM CDT Patient: LUISA BARBOUR Age: 53 years Sex: Female : 1965 Associated Diagnoses: Alcohol abuse Author: AMELIA SIERRA PA Basic Information Additional information: Chief Complaint from Nursing Triage Note : Chief Complaint 02/14/2019 17:35 EDT Chief Complaint pt seeking medical clearance for etoh detox . History of Present Illness Patient presents with daughter for evaluation of alcohol abuse and interested in seeking rehab. Reports she has been drinking a pint of vodka for 20 + years. Interested in quitting after speaking with daughter who states they had an intervention . Reports last drink was last night. Denies history of withdrawal or seizures. History of diabetes, HTN. . Review of Systems Constitutional symptoms: Negative except as documented in HPI. Skin symptoms: Negative except as documented in HPI. Eye symptoms: Negative except as documented in HPI. ENMT symptoms: Negative except as documented in HPI. Respiratory symptoms: Negative except as documented in HPI. Cardiovascular symptoms: Negative except as documented in HPI. Gastrointestinal symptoms: Negative except as documented in HPI. Genitourinary symptoms: Negative except as documented in HPI. Musculoskeletal symptoms: Negative except as documented in HPI. Neurologic symptoms: Negative except as documented in HPI. Health Status Allergies: Allergic Reactions (Selected) Severity Not Documented Lisinopril- Lip swell.. Medications: (Selected) Inpatient Medications Ordered Ativan: 1 mg, IV Push, 1-Time, PRN: Seizures Normal Saline Flush: 10 mL, IV Push, See Comment Sodium Chloride 0.9% bolus: 1,000 mL, 1,000 mL/Hr, IV Piggyback, 1-Time Thiamine Injection 100 mg + multivitamin injection 10 mL + magnesium sulfate injection 2 Gram + NS...: 100 mg, 1 mL, 100 mL/Hr, IV Piggyback, 1-Time. Past Medical/ Family/ Social History Surgical history: No active procedure history items have been selected or recorded.. Family history: No family history items have been selected or recorded.. Social history: Social & Psychosocial Habits No Data Available . Problem list: Active Problems (2) Diabetes mellitus Emphysema lung . Physical Examination Vital Signs Vital Signs/Vital Measures 02/14/2019 17:35 EDT Systolic Blood Pressure 130 mmHg Diastolic Blood Pressure 76 mmHg Temperature Source Oral Temperature Mode Fahrenheit Temperature, Fahrenheit 98.4 Deg F Clinical Temperature, C 36.9 Deg C Peripheral Pulse Rate 106 bpm HI Respiratory Rate 17 Breaths/Min Oxygen Saturation 95 % Oxygen Therapy Mode Room air . Measurements 02/14/2019 17:35 EDT Height Source Stated Height Entry Format [place] Height/Length, PUERTO RICAN (ft) 5 ft Height/Length PUERTO RICAN 3 Inch CLINICALHEIGHT 160.02 cm [place] Body Weight 52.02 kg Weight Source, ED Standing scale Weight Entry Format [place] Weight Estonian lb 152 lb CLINICALWEIGHT 69.09 kg Body Surface Area (BSA) 1.72 m2 Body Mass Index 27 kg/m2 HI . Oxygen Saturation 02/14/2019 17:35 EDT Oxygen Saturation 95 % . General: Alert, no acute distress. [place] coma scale: Per nurse's notes, Total score: Total score: 15. Neurological: Alert and oriented to person, place, time, and situation, No focal neurological deficit observed, no evidence of DTs . Skin: Warm. Head: Normocephalic. Neck: Supple. Eye: Sclera: not icteric. Ears, nose, mouth and throat: Oral mucosa moist. Cardiovascular: Regular rate and rhythm, No murmur, Normal peripheral perfusion, No edema. Respiratory: Lungs are clear to auscultation, respirations are non-labored, breath sounds are equal. Chest wall: No tenderness. Back: Nontender. Gastrointestinal: Soft, Nontender, Non distended, Normal bowel sounds. Lymphatics: No lymphadenopathy. Psychiatric: Cooperative. Medical Decision Making Documents reviewed: Emergency department nurses' notes. Notes: Discussed plan for medical clearance and a left evaluation with patient who is initially agreeable however after some time prior to receiving any blood work or further workup, she refused further workup of like to be discharged to home. The patient is afebrile, her vital signs are stable and she does not appear to be in DTs. Discussed return precautions with patient who voiced understanding. She wants to go home and pursue outpatient options for her rehabilitation.. Impression and Plan Diagnosis Alcohol abuse - Discharge, Emergency medicine, Medical Plan Condition: Stable. Disposition: Discharged Admit/Transfer/Discharge: Discharge (Order): Start: 02/14/2019 18:24 EDT, Discharge to: Home. Patient was given the following educational materials: Alcohol Use Disorder. Follow up with: LEO MARTINEZ Within 2 to 3 days return to ED if symptoms worsen , LEO MARTINEZ Within 2 to 3 days return to ED if symptoms worsen. Notes: I certify that the Physician Channeling Machine Runner performed the services as delegated. This document was created with [employer] dictation software and unidentified vessel slag worker errors may be present.. . Electronically signed by Sheree Napier Conversion Senior Oracle Adf Developer Christopher at 09/24/2022 6:08 PM CDT documented in this encounter Plan of Treatment Not on file documented as of this encounter Visit Diagnoses Not on filedocumented in this encounter
--- OUTSIDE RECORDS SUMMARY | 2025-01-18 13:38 | XMS_ITS | Encounter Summary ---
Author Organization [employer] ([place], [place], [place], [place]) Address [address] [place] [address] Care Team Providers Care Welder Assistant Name Role Phone Unavailable Primary Care Provider Unavailabl e Encounter Details Date Type Department Care Team (Late st Contact Info) Description 02/14/2019 Transcribed Document [facility] [place] [facility] [place] [address] ProviderAmari MD [address] [place] [address] Social History Tobacco Use Types Packs/Day [...] ProviderMD - 02/14/2019 5:30 PM CDT ED Assessment Entered On: 02/14/2019 18:27 EDT Performed On: 02/14/2019 18:26 EDT by Pam Arroyo RN ED Quick Look Assessment Level of Consciousness : Alert, Awake Affect/Behavior : Appropriate, Calm, Cooperative Orientation : Oriented x 4 Skin Temperature : Warm Skin Description : Dry Pam Arroyo RN - 02/14/2019 18:26 EDT ED General-Functional Assess Information Obtained From : Patient Preferred Communication Mode : Verbal Communication Barrier : None Primary Language : Pashto Any Spiritual/Cultural Needs or Requests : No Currently in Unsafe Situation : No Living Situation : Home Patient Lives With : Spouse Current Daily Living Assistance : None Sensory Deficits : None Mobility Assistance Prior to Admission : Independent Current Home Treatments : None Home Equipment : None Professional Skilled Services : None Pam Arroyo RN - 02/14/2019 18:26 EDT ED Psychosocial Assessment Affect/Behavior : Appropriate, Calm, Cooperative Patient Coping : Limited coping Hallucinations Present : None Delusions Present : None Do You Have a Support System? : Yes Who is Your Support System? : daughter Pam Arroyo RN - 02/14/2019 18:26 EDT Social Habits Smoking Status : 10 or more cigarettes (1/2 pack or more)/day in last 30 days Smokeless Tobacco Status : Never Desires Tobacco Cessation Medication : No Reason for No Tobacco Cessation Medication : ED/procedural patient only Desires Tobacco Cessation Calc : 1 Pam Arroyo RN - 02/14/2019 18:26 EDT Social History (As Of: 02/14/2019 18:27:27 EDT) Tobacco: 10 or more cigarettes (1/2 pack or more)/day in last 30 days Smoking Status. Never Smokeless Tobacco Status. (Last Updated: 02/14/2019 18:26:43 EDT by Pam Arroyo, RN) Alcohol: Alcohol Use History Yes. Days/Week: 7. Use in Last 12 Months: Yes. Alcohol Use Frequency Daily. (Last Updated: 02/14/2019 18:26:53 EDT by Pam Arroyo, RN) Substance Abuse: Drug Use Hx: No. Use in Last 12 Months: No. (Last Updated: 02/14/2019 18:26:57 EDT by Pam Arroyo, ITZEL) documented in this encounter Plan of Treatment Not on file documented as of this encounter Visit Diagnoses Not on filedocumented in this encounter
--- OUTSIDE RECORDS SUMMARY | 2025-01-18 13:39 | XMS_ITS | Clinical Summary ---
Author Organization [employer] ([place], [place], [place], [place]) Address [address] [place] [address] Care Team Providers Care Eligibility Supervisor Name Role Phone Unavailable Primary Care Provider Unavailabl e Social History Tobacco Use Types Packs/Day Years Used Date Smoking Tobacco: Never Assessed Comments Unknown Sex and Gender Information Value Date Recorded Sex Assigned at Female 12/05/2021 8:35 PM CDT Legal Sex Female 8:35 PM CDT Gender Identity Female 12/05/2021 8:35 PM CDT Sexual Orientation Not on file Plan of Treatment Not on file
--- OUTSIDE RECORDS SUMMARY | 2025-01-18 13:39 | XMS_ITS | Referral Summary ---
Author Organization [employer] ([place], [place], [place], [place]) Address [address] [place] [address] Care Team Providers Care Siebel Architect Name Role Phone Unavailable Primary Care Provider [...]
== END 2025-01-18 23:59 | disposition home or self-care (01) ==
LOC: RAD 13:34
PROVIDERS: PCP Nurse Practitioner; Visit Provider Nurse Practitioner
DX: Z12.31 Encounter for screening mammogram for malignant neoplasm of breast (principal)
CPT/HCPCS: 77063; 77067

== ENCOUNTER 2025-03-23 09:50 | Emergency (ER) | payer OTHER, SELFPAY ==
--- OUTSIDE RECORDS SUMMARY | 2024-01-09 07:00 | XMS_ITS ---
Author Organization [facility] Address [address] [place] [address] Care Team Providers Care Carpet Inspector Name Role Phone Irasema Casillas Primary Care Provider [phone] Nando Manisha Robledo [phone] Allergies Allergen (clinical drug ingredient) Drug/Non Drug [...] education/GED Encounters Encounter Location Date Provider Diagnosis [address] [address] 01/09/2024 Manisha Collier Plan Of Treatment No Information Progress Notes * Arminda BARBOURDOB: [birth year] (59 yo F)Acc No.[id number]:01/09/2024 New Patient Patient: Arminda SÁNCHEZ Provider: Karen Collier APRN :1965 A ge:58 Y S ex:Female Date:01/09/2024 Address:[address] [place] [address] [place], [place], [id number] Pcp:Irasema Casillas Subjective: * Chief Complaints: * [...] Electronic signature of Luis Collier APRN on 03/23/2025 at 09:59 AM EDT Sign off status: Pending Visit Status: C ANC (Cancelled) * Provider: Karen Collier APRN Date: 0 01/09/2024 Generated for Beatriz echevarria/Ravinder/Marcela on: 1 09:59 AM EDT
[2025-03-23 09:57] VITALS: BP 125/78; PULSE 82; RESP 16; TEMP 36.6; O2SAT 98; BMI 35.6
--- OUTSIDE RECORDS SUMMARY | 2025-03-23 09:59 | XMS_ITS | Encounter Summary ---
Author Organization [employer] ([place], [place], [place], [place]) Address [address] [place] [address] Care Team Providers Care Chemistry Manager Name Role Phone Unavailable Primary Care Provider Unavailabl e Encounter Details Date Type Department Care Team (Late st Contact Info) Description 02/14/2019 Transcribed Document [facility] [place] [facility] [place] [address] ProviderAmari MD [address] [place] [address] Social History Tobacco Use Types Packs/Day [...] Communication Barrier : None Primary Language : Azerbaijani Any Spiritual/Cultural Needs or Requests : No [...]
[2025-03-23 10:00] VITALS: BP 100/70; PULSE 79; O2SAT 98
--- OUTSIDE RECORDS SUMMARY | 2025-03-23 10:00 | XMS_ITS | Encounter Summary ---
Author Organization [employer] ([place], [place], [place], [place]) Address [address] [place] [address] Care Team Providers Care Bender Machine Operator Name Role Phone Unavailable Primary Care Provider Unavailabl e Encounter Details Date Type Department Care Team (Late st Contact Info) Description 02/14/2019 Transcribed Document [facility] [place] Family Medicine [facility] [place] [address] ProviderAmari MD [address] [place] [address] Social History Tobacco Use Types Packs/Day [...] EDT Height Source Stated Height Entry Format [place] Height/Length, BRUNEIAN (ft) 5 ft Height/Length BRUNEIAN 3 Inch CLINICALHEIGHT 160.02 cm [place] Body Weight 52.02 kg Weight Source, ED Standing scale Weight Entry Format [place] Weight Lithuanian lb 152 lb CLINICALWEIGHT 69.09 kg Body Surface Area (BSA) 1.72 m2 Body Mass Index 27 kg/m2 HI . Oxygen Saturation 02/14/2019 17:35 EDT Oxygen Saturation 95 % . General: Alert, no acute distress. [place] coma scale: Per nurse's notes, Total score: [...] worsen. Notes: I certify that the Physician Nuclear Technician performed the services as delegated. This document was created with [employer] dictation software and unidentified cloud architect errors may be present.. . documented in this encounter Plan of Treatment Not on file documented as of this encounter Visit Diagnoses Not on filedocumented in this encounter
--- OUTSIDE RECORDS SUMMARY | 2025-03-23 10:00 | XMS_ITS | Encounter Summary ---
Author Organization [employer] ([place], [place], [place], [place]) Address [address] [place] [address] Care Team Providers Care High Reach Operator Name Role Phone Unavailable Primary Care Provider Unavailabl e Encounter Details Date Type Department Care Team (Late st Contact Info) Description 02/14/2019 Transcribed Document [facility] [place] Family Medicine [facility] [address] ProviderAmari MD [address] [place] [id number] Social History Tobacco Use Types Packs/Day Years [...]
--- OUTSIDE RECORDS SUMMARY | 2025-03-23 10:00 | XMS_ITS | Encounter Summary ---
Author Organization [employer] ([place], [place], [place], [place]) Address [address] [place] [address] Care Team Providers Care Porcelain Finisher Name Role Phone Unavailable Primary Care Provider Unavailabl e Encounter Details Date Type Department Care Team (Late st Contact Info) Description 02/14/2019 Transcribed Document [facility] [place] [facility] [address] ProviderAmari MD [address] [place] [address] Social History Tobacco Use Types Packs/Day [...] : 3 - Urgent Tracking Group : [facility] ED FERNANDO HADLEY RN - 02/14/2019 17:35 [...] 17:40:13 EDT) Problems(Active) Diabetes mellitus (SNOMED CT :256210000 ) Name of Problem: Diabetes mellitus ; Recorder: FERNANDO HADLEY RN; Confirmation: Confirmed ; Classification: Medical ; Code: [id number] ; Contributor System: [employer] ; Last Updated: 02/14/2019 17:38 EDT ; Life Cycle Date: 02/14/2019 ; Life Cycle Status: Active ; Vocabulary: SNOMED CT Emphysema lung (SNOMED CT :179545524 ) Name of Problem: Emphysema lung ; Recorder: FERNANDO HADLEY RN; Confirmation: Confirmed ; Classification: Medical ; Code: [id number] ; Contributor System: [employer]ANT[employer] SystemsChart ; Last Updated: 02/14/2019 17:38 EDT ; Life Cycle Date: 02/14/2019 ; Life Cycle Status: Active ; Vocabulary: SNOMED CT Diagnoses(Active) Acute alcoholism Date: 02/14/2019 ; Diagnosis Type: Reason For Visit ; Confirmation: Complaint of ; Clinical Dx: Acute alcoholism ; Classification: Medical ; Clinical Service: Emergency medicine ; Code: PNED ; Probability: 0 ; Diagnosis Code: [id number] ED Height and Weight Height Source : Stated Height Entry Format : [place] Height, Feet : 5 ft(Converted to: 152 cm, 60 Inch) Height, Inches : 3 Inch(Converted to: 0 ft 3 Inch, 7.62 cm) Clinical Height : 160.02 cm Weight Source, ED : Standing scale Weight Entry Format : [place] Weight, Pounds : 152 lb Clinical Dosing Weight : 69.09 kg Body Surface Area (BSA) : 1.72 m2 Body Mass Index : 27 kg/m2 (HI) [place] Body Weight (IBW) : 52.02 kg FERNANDO HADLEY RN - 02/14/2019 17:35 EDT documented in this encounter Plan of Treatment Not on file documented as of this encounter Visit Diagnoses Not on filedocumented in this encounter
--- OUTSIDE RECORDS SUMMARY | 2025-03-23 10:00 | XMS_ITS | Patient Health Record ---
Author Organization [facility] Address [address] [facility] [place] Narayan[place] [address] Care Team Providers Care Registered Safety Engineer Name Role Phone Irasema Casillas Primary Care Provider Allergies Allergen (clinical drug ingredient) Drug/Non Drug [...] End Date [employer] [address] [place] [phone] [id number] Arminda Barbour Self - patient is the insured 4 Medical (General) History Medical History History ICD Code COPD GERD Hypertension Anxiety Depression Hypokalemia\ Surgical History Surgery Date(Month/Year) hysterectomy tubal
--- OUTSIDE RECORDS SUMMARY | 2025-03-23 10:00 | XMS_ITS | Referral Summary ---
Author Organization [employer] ([place], [place], [place], [place]) Address [address] [place] [address] Care Team Providers Care Load Blocker Name Role Phone Unavailable Primary Care Provider [...]
--- OUTSIDE RECORDS SUMMARY | 2025-03-23 10:00 | XMS_ITS | Encounter Summary ---
Author Organization [employer] ([place], [place], [place], [place]) Address [address] [place] [address] Care Team Providers Care Returns Supervisor Name Role Phone Unavailable Primary Care Provider Unavailabl e Encounter Details Date Type Department Care Team (Late st Contact Info) Description 02/14/2019 Transcribed Document [facility] [place] Family Medicine [facility] [place] [address] ProviderAmari MD [facility] [place] [address] Social History Tobacco Use Types [...] 6:24 PM CDT Electronically signed by Karthikeyan, [facility] Conversion Fluorescent Lamp Replacer Cerner at 09/24/2022 5:46 PM CDT documented in this encounter Plan of Treatment Not on file documented as of this encounter Visit Diagnoses Not on filedocumented in this encounter
--- OUTSIDE RECORDS SUMMARY | 2025-03-23 10:00 | XMS_ITS | Encounter Summary ---
Author Organization [employer] ([place], [place], [place], [place]) Address [address] [place] [address] Care Team Providers Care Shovel Engineer Name Role Phone Unavailable Primary Care Provider Unavailabl e Encounter Details Date Type Department Care Team (Late st Contact Info) Description 02/14/2019 Transcribed Document [facility] [place] Medicine [facility] [place] [address] ProviderAmari MD [address] [place] [address] Social History Tobacco Use Types Packs/Day [...] Amari ProviderMD - 02/14/2019 6:29 PM CDT [facility] [place] [address] LUISA BARBOUR :1965 Visit Time:02/14/2019 Your Visit Summary Your Care Team Admitting Physician - SHAMIKA SHELDON MARK, MD Attending Physician - CLARITA SILVER MD Primary Care Physician - LEO MARTINEZ NP-[facility] Referring Physician - CLARITA SILVER MD [...] Follow these instructions at home: ??? Take [id number]-mlyspyg and prescription medicines only as told by [...] 07/04/2005 Document Revised: 02/21/2017 Document Reviewed: 02/21/2017 [employer] Interactive Patient Education ?? 2019 [employer]. Emergency Awareness and Preventative Care STROKE is [...] Assistance with quitting is available by contacting 8-786-AYPYRegenobody HoldingsNOW. This is a free resource providing counseling, [...] was given the opportunity to ask questions. Patient/Alley Cleaner Name: Patient/Alley Cleaner Signature: Relationship to Patient: Clinician/Hospital Alley Cleaner Signature: Please Provide a Telephone Number Where You Can Be Reached: Is it Permissible To Leave a Message? Date: documented in this encounter Plan of Treatment Not on file documented as of this encounter Visit Diagnoses Not on filedocumented in this encounter
--- OUTSIDE RECORDS SUMMARY | 2025-03-23 10:00 | XMS_ITS | Clinical Summary ---
Author Organization [employer] ([place], [place], [place], [place]) Address [address] [place] [address] Care Team Providers Care Computer Technical Support Specialist Name Role Phone Unavailable Primary Care Provider [...]
--- NOTE | 2025-03-23 10:12 | XR_ITS ---
FINAL REPORT CLINICAL HISTORY: Cough, chills, congestion, sore throat FINDINGS: PA and lateral views of the chest are obtained. There is no prior exam for comparison. The cardiac and mediastinal silhouettes are within normal limits. The lungs are clear. There is no pleural effusion, pneumothorax, or acute osseous abnormality. IMPRESSION: No radiographic evidence of acute cardiac or pulmonary disease. Reviewed, Interpreted and Dictated by Ramona Moreau MD Transcribed by Yesi Anderson Authenticated and [facility]
--- NOTE | 2025-03-23 10:14 | ED_ITS ---
<Statement entered by Noy Rea DO - 03/23/25 14:05> I was consulted by the SHWETA, and we discussed the complexity of the problems being addressed. I approved the treatment and management plan for this patient's care in the emergency department, thus performing a substantive portion of the medical decision making. Noy Rea DO Discharge Plan Disposition Patient Disposition: Home, Self-Care Condition: Good Prescriptions Prescriptions: No Action methocarbamol 500 mg tablet 500 mg PO HS carvedilol [Coreg] 25 mg tablet 25 mg PO BID Rx Instructions: must administer with a meal/food clonidine HCl 0.1 mg tablet 0.1 mg PO TID trazodone 50 mg tablet 50 mg PO HS aspirin [Adult Aspirin Regimen] 81 mg tablet,delayed release (DR/EC) 81 mg PO DAILY melatonin 12 mg tablet 12 mg PO HS Adeno-Hydroxo B12 2,500 mcg tablet,disintegrating 2,500 tab PO potassium chloride 10 mEq capsule, extended release 10 meq PO DAILY Patient Comments: Take 1 capsule every day by oral route for 14 days. clonazepam 0.5 MG tablet 0.5 mg PO BID atorvastatin 40 mg tablet 40 mg PO DAILY Patient Comments: TAKE 1 TABLET 1 TIME EACH DAY hydrochlorothiazide 12.5 mg tablet 12.5 mg PO DAILY Patient Comments: TAKE 1 TABLET 1 TIME EACH DAY Referrals Follow up/Referrals: Irasema Puga APRN [Primary Care Provider, Medical] - See instructions Activity Restrictions/Add. Instructions Additional Instructions/Restrictions: Please return to the emergency department with any worsening signs or symptoms. Please take all your medications as prescribed. Please utilize [id number] cold and flu medications, lozenges, tea as needed for your sore throat. Please follow-up with your PCP in the upcoming days/weeks. We will call you if the radiologist report has any actionable results of your chest x-ray. No news is good news. Clinical Impressions Clinical Impression: Pharyngitis with viral syndrome Instructions Patient Instructions: DI for Viral Pharyngitis, DI for Viral Syndrome Print Language Print Language: Belarusian Discharge ED Provider: Noy Rea General Adult HPI General Chief complaint: Sore Throat Stated complaint: Pain in throat & fatigue Time Seen by Provider: 03/23/25 10:03 Mode of Arrival: Ambulatory Source of Information: Patient Description of Symptoms (Recalled from ER Triage Doc. by RN): Patient reports dry throat with pain for 4 days. Also reports diarrhea. States that her grandkids had staph in their throat approx 2-3 weeks ago and that she was exposed to that. History of Present Illness HPI narrative: 59-year-old female presents emergency department with cough, subjective fever and chills, sore throat, chest congestion , for the last 4 to 5 days, patient describes it as dry and scratchy . Patient denies any overt chest pain shortness of breath, denies any nausea vomiting constipation, does admit to diarrhea, which is somewhat chronic for her, she denies any abdominal pain, no urinary type symptomatology, no hematuria melena hematochezia hematemesis, patient is current everyday smoker, denies any alcohol or illicit drug use. Other past medical history is consistent with hypertension, hyperlipidemia, anxiety, vitamin B12 deficiency. Initial triage vitals are unremarkable. Of note, she had some grandkids that she was exposed to around 2 to 3 weeks ago and she states that they were diagnosed with staph . Please note that above description of symptoms, in this electronic medical record under categorization of recalled from ER triage doctor by RN are reflective of an initial nursing assessment, however, is not reflective of my full history and physical exam that was personally taken and clarified. Consequentially, this preceding description of symptoms, which may include the patient's categorized chief complaint in the EMR, do not reflect my personal clinical impression, and the ultimate description of history of present illness and patient stated complaints should be deferred to this section of the note. Unless stated otherwise or congruent with this section of the note, additional signs, symptoms, or incongruence should be interpreted as inaccurate with my clinical impression. Onset (ago): day(s) Related Data Home Medications ?Medication ?Instructions ?Recorded ?Confirmed clonazepam 0.5 mg tablet 0.5 mg PO BID 11/18/1703/15 atorvastatin 40 mg tablet 40 mg PO DAILY 09/29/2312/02 hydrochlorothiazide 12.5 mg tablet 12.5 mg PO DAILY 03/15/25 potassium chloride 10 mEq 10 meq PO DAILY 12/03/2312/02 capsule,extended release aspirin 81 mg tablet,delayed 81 mg PO DAILY 03/15/25 1 release (Adult Aspirin Regimen) carvedilol 25 mg tablet (Coreg) 25 mg PO BID 03/15/25 03/15/25 clonidine HCl 0.1 mg tablet 0.1 mg PO TID 03/15/2512/02 hydroxocobalamin-cobamamide (vit 2,500 tab PO 03/15/25 03/15/25 B12) 2,500 mcg disintegrating tablet (Adeno-Hydroxo B12) melatonin 12 mg tablet 12 mg PO HS 03/15/25 5 methocarbamol 500 mg tablet 500 mg PO HS 03/15/2512/02 trazodone 50 mg tablet 50 mg PO HS 03/15/25 5 Allergies Allergy/AdvReac Type Severity Reaction Status Date / Time Beta-Blockers Allergy lip and Verified 03/15/25 14:36 (Beta-Adrenergic Bloc tongue swelled lisinopril Allergy lip and Verified 03/15/25 14:36 tongue swelling [facility] Disclaimer: The information contained in this section may have been updated after the patient was seen, as this information can be updated by other users. Medical History (Updated 03/23/25 @ 11:55 by PILI Peña) HLD (hyperlipidemia) Anxiety HTN (hypertension) Social History (Updated 09/30/23 @ 11:04 by Bernadette Forte CRNA) Smoking Status: Current every day smoker tobacco type: cigarettes alcohol intake: current substance use type: denies use current occupational status: employed Travel in the last 8 weeks?: None Have you lived/traveled outside [place] in past 30 days?: No Contact w/someone who lives/traveled outside [place] past 30 days?: No Exposure to someone with infectious disease in past 14 days?: No Do you have a fever (greater than 100.4 F or 38 C)?: No Have you tested positive for COVID-19?: No Exposed to someone with COVID-19 in past 14 days?: No Do you have a sore throat?: No Do you have a cough?: No Do you have any weakness?: No Do you have any diarrhea?: No Are you experiencing any unusual bleeding?: No Do you have any muscle aches/pain?: No Do you have any abdominal pain?: No Are you experiencing loss of taste or smell?: No Other Medical History Have you received the Flu Vaccine for this season: No Have you received the Pneumonia Vaccine: No ROS Obtained: Yes All systems reviewed & no additional complaints except as documented Physical Exam General General appearance: alert and in no apparent distress Head Head exam: atraumatic and normocephalic Eye Eye exam: Present PERRL and EOMI ENT ENT exam: Present normal oropharynx, mucous membranes moist and other (No tonsillar exudates, no oropharyngeal edema or erythema uvula midline) Neck Neck exam: Present normal inspection Chest Chest inspection: Present normal inspection and symmetric chest wall rise Respiratory Respiratory exam: Present normal lung sounds bilaterally; Absent respiratory distress Cardiovascular Cardiovascular exam: Present regular rate and normal rhythm Abdominal Exam Abdominal exam: Present soft; Absent tenderness, guarding or rebound Extremities Exam Extremities exam: Present normal inspection Neurological Exam Neurological exam: Present alert and oriented X3 Psychiatric Psychiatric exam: Present normal affect Skin Skin exam: Present warm and dry Medical Decision Making Medical Records Medical records reviewed: Yes I reviewed the patient's medical records. Screening: Per USPSTF and CDC recommendations, given the prevalence of disease in our region, it is our hospital?s policy to screen for HIV and viral Hepatitis for all patients aged 18 and over and those with ongoing risk factors. Marcus Inquiry Pt receiving controlled substance: No Vital Signs: 03/23/25 09:57 03/23/25 10:00 Temperature 97.8 F Temperature Source Oral Pulse Rate 79 Pulse Rate [Radial] 82 Respiratory Rate 16 Blood Pressure 100/70 L Blood Pressure [Right Arm] 125/78 Blood Pressure Mean [Right Arm] 93 Blood Pressure Source [Right Arm] Automatic Cuff Blood Pressure Position [Right Arm] Sitting 02 Sat by Pulse Oximetry 98 98 Oxygen Delivery Method Room Air Room Air Lab Data Lab results reviewed: Yes I reviewed the patient's lab results. Lab Results 03/23/25 10:04: Group A Strep Rapid Negative 03/23/25 10:12: SARS-CoV-2 (PCR) Not detected, Influenza Type A (PCR) Not detected, Influenza Type B (PCR) Not detected, RSV (PCR) Not detected, Rhinovirus (PCR) Not detected Orders (Tests/Meds): ORDERS Category Date Time Status CXR 2 view (NOT portable) [XR chest 2V] Stat Exams 03/23/25 10:12 Taken Mini Respiratory Panel Stat Lab 03/23/25 10:12 Completed Strep Scrn Group A (Rapid) Stat Lab 03/23/25 10:04 Completed Strep Screen Confirmation Stat Micro 03/23/25 10:04 Received Medical Decision Narrative: 59-year-old female presents the emergency department with cough congestion sore throat for 4 to 5 days, differential diagnosis include but not limited to, viral pharyngitis, pneumonia, acute bronchitis, viral URI, streptococcal pharyngitis, GERD, among others. I discussed this patient's case with the attending physician Dr. Rea Will obtain mini respiratory panel, chest x-ray, and streptococcal rapid antigen swab. Group A Strep negative COVID-19 negative via PCR influenza negative via PCR RSV negative via PCR and rhinovirus negative via PCR I along with the attending physician reviewed the patient's chest x-ray, no acute cardiopulmonary abnormality, discussed this with the patient at the bedside. Patient has remained hemodynamically stable without her time in the emergency department, discussed all results with her, most likely viral illness/viral pharyngitis to the cause of her symptoms, with known exposure to most likely viral illness from her grandkids. Patient denies any fever, discussed that her chest x-ray results were not yet available per radiology, patient would like be discharged home to self-care I think this is appropriate. I recommend [id number] cold flu medications for symptomatic relief. Patient was given strict ED return precautions. Patient voiced understanding and agreement with current treatment plan/discharge plan. Critical Care Critical Care Time Critical Care Time: No
[2025-03-23 10:16] LABS: Coronavirus 19, PCR Not Detected (NotDetected); Influenza A, PCR Not Detected (NotDetected); Influenza B, PCR Not Detected (NotDetected)
[2025-03-23 10:41] LABS: Strep Scrn Group A (Rapid) Negative (Negative)
[2025-03-23 12:18] VITALS: BP 150/70; PULSE 80; RESP 20; TEMP 36.8; O2SAT 98
== END 2025-03-23 12:18 | disposition home or self-care (01) ==
PROVIDERS: Physician Assistant; Emergency Provider Emergency Medicine; PCP Nurse Practitioner
DX: J02.9 Acute pharyngitis, unspecified (principal); B34.9 Viral infection, unspecified; F17.210 Nicotine dependence, cigarettes, uncomplicated; I10 Essential (primary) hypertension; E78.5 Hyperlipidemia, unspecified
CPT/HCPCS: 71046; 87430; 87631; 99283